=== PATIENT | female | born 1935 | race Caucasian/White ===

== ENCOUNTER → 2021-07-12 | Outpatient (CLI) | payer MEDICARE, BC ==
--- NOTE | 2021-07-12 13:29 | BD ---
EXAMINATION TYPE: Axial Bone Density DATE OF EXAM: 07/12/2021 COMPARISON: 06.11.2012 CLINICAL HISTORY: 85 YR OLD FEMALE.....ICD-10 CODE: Z78 MENOPAUSAL STATE Height: 57.5 Weight: 126 FRAX RISK QUESTIONS: NOTHING TO NOTE HERE RISK FACTORS HISTORY OF: Family History of Osteoporosis: YES, FATHER Postmenopausal woman: YES AT AGE 52 Lost more than 2 inches in height since high school: YES Frequent falls: ELDERLY Poor Health: POOR HISTORIAN, SLIGHT LANGUAGE BARRIER Hyperparathyroidism: UNKNOWN Adrenal Insufficiency: UNKNOWN MEDICATIONS: Additional Medications: BP MEDS, STATIN FOR CHOLESTEROL, VIT D, COD LIVER OIL Additional History: HYPERTENSION, CHOLESTEROL EXAM MEASUREMENTS: Bone mineral densitometry was performed using the [employer] System. Bone mineral density as measured about the Lumbar spine is: ----- L1-L4(G/cm2): 1.141 T Score Values are as follows: ----- L1: -0.4 ----- L2: 0.1 ----- L3: -0.6 ----- L4: -0.4 ----- L1-L4: -0.3 Bone mineral density has: Increased 1.3% since study of: 06.11.2012 Bone mineral density about the R hip (g/cm2): 0.683 Bone mineral density about the L hip (g/cm2): 0.735 T Score values are as follows: -----R Neck: -1.6 -----L Neck: -1.9 -----R Total: -2.6 -----L Total: -2.2 Bone mineral density has: Decreased -11.5% since study of: 06.11.2012 FRAX%s: THERE IS A 15.4% CHANCE FOR A MAJOR OSTEOPOROTIC FX AND A 4.6% FOR HER HIPS.....PROBABILI TY FOR FX IN 10 YRS TIME IMPRESSION: Osteoporosis (T Score less than -2.5). There is increased fracture risk and therapy is usually indicated based on age. Re-Screen 1-2 years. NOTE: T-SCORE=SD OF THE YOUNG ADULT MEAN.
== END | disposition home or self-care (01) ==
LOC: RADBDWWP 08:25
PROVIDERS: ATTEND Family Medicine
DX: M81.0 Age-related osteoporosis without current pathological fracture (principal); Z78.0 Asymptomatic menopausal state
CPT/HCPCS: 77080

== ENCOUNTER → 2021-09-11 | Outpatient (CLI) | payer MEDICARE, BC ==
[2021-09-11 16:17] LABS: Basophils % (A) 1.2 %; Eosinophils # (A) 0.12 X 10*3/uL (0.04-0.35); Eosinophils % (A) 1.5 %; HCT 40.7 % (37.2-46.3); HGB 13.5 g/dL (12.0-15.0); Lymphocytes # (A) 2.47 X 10*3/uL (0.90-5.00); Lymphocytes % (A) 30.6 %; MCH 28.7 pg (27.0-32.0); MCHC 33.2 g/dL (32.0-37.0); MCV 86.6 fL (80.0-97.0); Mean Platelet Volume 9.7 fL (9.5-12.2); Monocytes % (A) 9.9 %; Neutrophils # (A) 4.53 X 10*3/uL (1.80-7.70); Neutrophils % (A) 56.3 %; Platelet Count 287 X 10*3/uL (140-440); RDW 12.3 % (11.5-14.5); WBC 8.06 X 10*3/uL (4.50-10.00)
[2021-09-11 18:33] LABS: ALT 17 U/L (8-44); AST 20 U/L (13-35); African American GFR (CKD) 95.4 (60.0-200.0); Albumin 4.5 g/dL (3.8-4.9); Albumin/Globulin Ratio 1.71 (1.60-3.17); Alkaline Phosphatase 89 U/L (41-126); BUN/Creat Ratio 15.12 Ratio (12.00-20.00); Blood Urea Nitrogen 9.7 mg/dL (9.0-27.0); Calcium 9.8 mg/dL (8.7-10.3); Carbon Dioxide 22.8 mmol/L (20.0-27.5); Chloride 100 mmol/L (96-109); Chol/HDL Ratio 3.09 Ratio; Globulin 2.6 g/dL (1.6-3.3); Glucose 113 mg/dL (70-110); LDL Cholesterol,Calculated 84.1 mg/dL (0.0-131.0); Non-African American GFR(CKD) 82.4 (60.0-200.0); Potassium 4.7 mmol/L (3.5-5.5); Sodium 135 mmol/L (135-145); Total Protein 7.1 g/dL (6.2-8.2)
== END | disposition home or self-care (01) ==
LOC: LABWHC1 10:15
PROVIDERS: ATTEND Family Medicine
DX: E78.00 Pure hypercholesterolemia, unspecified (principal); E87.1 Hypo-osmolality and hyponatremia; I10 Essential (primary) hypertension; M81.0 Age-related osteoporosis without current pathological fracture
CPT/HCPCS: 36415; 80053; 80061; 82306; 85025

== ENCOUNTER 2022-08-31 20:02 | Inpatient (IN) | payer MEDICARE, BC ==
[2022-08-31 22:02] LABS: Basophils % (A) 0 %; Eosinophils # (A) 0.1 k/uL (0-0.7); Eosinophils % (A) 1 %; HGB 14.2 gm/dL (11.4-16.0); Lymphocytes # (A) 1.3 k/uL (1.0-4.8); Lymphocytes % (A) 10 %; MCH 29.4 pg (25.0-35.0); MCHC 33.9 g/dL (31.0-37.0); MCV 86.7 fL (80.0-100.0); Mean Platelet Volume 7.3; Monocytes # (A) 0.6 k/uL (0-1.0); Monocytes % (A) 5 %; Neutrophils # (A) 10.4 k/uL (1.3-7.7); Neutrophils % (A) 83 %; Platelet Count 448 k/uL (150-450); RBC 4.85 m/uL (3.80-5.40); RDW 13.2 % (11.5-15.5); WBC 12.6 k/uL (3.8-10.6)
[2022-08-31 22:11] LABS: Albumin 3.4 g/dL (3.5-5.0); Calcium 8.9 mg/dL (8.4-10.2); Total Bilirubin 0.5 mg/dL (0.2-1.3); Total Protein 6.7 g/dL (6.3-8.2)
--- NOTE | 2022-08-31 22:39 | ED ---
Weakness HPI - General Chief complaint: Weakness Stated complaint: Weakness,PCP sent Time Seen by Provider: 08/31/22 22:38 Source: patient, RN notes reviewed, old records reviewed Mode of arrival: ambulatory Limitations: no limitations - History of Present Illness Initial comments: 86-year-old female DF for evaluation. Patient primarily complaining of weakness. Weakness lightheadedness dizziness. decreased appetite weakness lightheadedness, swelling of fever MD Complaint: generalized weakness -: days(s) Location: generalized Severity: moderate Severity scale (1-10): 7 Quality: numbness, aching Consistency: constant Improves with: none Worsens with: none Context: recent illness, history of similar Associated Symptoms: confusion, nausea/vomiting, shortness of breath - Related Data Allergies Allergy/AdvReac Type Severity Reaction Status Date / Time No Known Allergies Allergy Verified 08/31/22 20:08 Review of Systems ROS Statement: Those systems with pertinent positive or pertinent negative responses have been documented in the HPI. ROS Other: All systems not noted in ROS Statement are negative. Past Medical History Past Medical History: Hyperlipidemia, Hypertension Additional Past Medical History / Comment(s): leaky valves History of Any Multi-Drug Resistant Organisms: None Reported Past Surgical History: Tubal Ligation Past Psychological History: No Psychological Hx Reported Smoking Status: Never smoker Past Alcohol Use History: None Reported Past Drug Use History: None Reported General Exam Limitations: no limitations General appearance: alert, in no apparent distress Head exam: Present: atraumatic, normocephalic, normal inspection Eye exam: Present: normal appearance, PERRL, EOMI. Absent: scleral icterus, conjunctival injection, periorbital swelling ENT exam: Present: normal exam, mucous membranes moist Neck exam: Present: normal inspection. Absent: tenderness, meningismus, lymphadenopathy Respiratory exam: Present: normal lung sounds bilaterally. Absent: respiratory distress, wheezes, rales, rhonchi, stridor Cardiovascular Exam: Present: regular rate, normal rhythm, normal heart sounds. Absent: systolic murmur, diastolic murmur, rubs, gallop, clicks GI/Abdominal exam: Present: soft, normal bowel sounds. Absent: distended, tenderness, guarding, rebound, rigid Extremities exam: Present: normal inspection, full ROM, normal capillary refill. Absent: tenderness, pedal edema, joint swelling, calf tenderness Back exam: Present: normal inspection Neurological exam: Present: alert, oriented X3, CN II-XII intact Psychiatric exam: Present: normal affect, normal mood Skin exam: Present: warm, dry, intact, normal color. Absent: rash Course Vital Signs 08/31/22 08/31/22 20:09 23:36 Temperature 96 F L 97.8 F Pulse Rate 50 L 92 Respiratory 16 16 Rate Blood Pressure 120/73 113/63 O2 Sat by Pulse 92 L 95 Oximetry - Reevaluation(s) Reevaluation #1: 08/31/22 23:43 Medical record is reviewed Reevaluation #2: 08/31/22 23:43 Patient informed of results Reevaluation #3: 08/31/22 23:43 Patient has no change in symptoms here in the ER - Consultations Consultation #1: Spoke with [facility] who agree to admit this patient Medical Decision Making - Medical Decision Making 86 female to the emergency department admitted for severe decreased appetite and dehydration elevated potassium treatment of all the above, pneumonia likely UTI and dehydration - Lab Data Result diagrams: 08/31/22 21:51 08/31/22 21:51 Lab Results 08/31/22 08/31/22 08/31/22 Range/Units 21:51 21:51 21:51 WBC 12.6 H (3.8-10.6) k/uL RBC 4.85 (3.80-5.40) m/uL Hgb 14.2 (11.4-16.0) gm/dL Hct 42.0 (34.0-46.0) % MCV 86.7 (80.0-100.0) fL MCH 29.4 (25.0-35.0) pg MCHC 33.9 (31.0-37.0) g/dL RDW 13.2 (11.5-15.5) % Plt Count 448 (150-450) k/uL MPV 7.3 Neutrophils % 83 % Lymphocytes % 10 % Monocytes % 5 % Eosinophils % 1 % Basophils % 0 % Neutrophils # 10.4 H (1.3-7.7) k/uL Lymphocytes # 1.3 (1.0-4.8) k/uL Monocytes # 0.6 (0-1.0) k/uL Eosinophils # 0.1 (0-0.7) k/uL Basophils # 0.0 (0-0.2) k/uL Sodium 135 L (137-145) mmol/L Potassium 6.0 H (3.5-5.1) mmol/L Chloride 102 (98-107) mmol/L Carbon Dioxide 22 (22-30) mmol/L Anion Gap 11 mmol/L BUN 35 H (7-17) mg/dL Creatinine 0.77 (0.52-1.04) mg/dL Est GFR (CKD-EPI)AfAm 82 (>60 ml/min/1.73 sqM) Est GFR (CKD-EPI)NonAf 71 (>60 ml/min/1.73 sqM) Glucose 158 H (74-99) mg/dL Calcium 8.9 (8.4-10.2) mg/dL Total Bilirubin 0.5 (0.2-1.3) mg/dL AST 32 (14-36) U/L ALT 18 (4-34) U/L Alkaline Phosphatase 60 (38-126) U/L Troponin I 0.046 H* (0.000-0.034) ng/mL Total Protein 6.7 (6.3-8.2) g/dL Albumin 3.4 L (3.5-5.0) g/dL Coronavirus (PCR) (Not Detectd) 08/31/22 Range/Units 22:49 WBC (3.8-10.6) k/uL RBC (3.80-5.40) m/uL Hgb (11.4-16.0) gm/dL Hct (34.0-46.0) % MCV (80.0-100.0) fL MCH (25.0-35.0) pg MCHC (31.0-37.0) g/dL RDW (11.5-15.5) % Plt Count (150-450) k/uL MPV Neutrophils % % Lymphocytes % % Monocytes % % Eosinophils % % Basophils % % Neutrophils # (1.3-7.7) k/uL Lymphocytes # (1.0-4.8) k/uL Monocytes # (0-1.0) k/uL Eosinophils # (0-0.7) k/uL Basophils # (0-0.2) k/uL Sodium (137-145) mmol/L Potassium (3.5-5.1) mmol/L Chloride (98-107) mmol/L Carbon Dioxide (22-30) mmol/L Anion Gap mmol/L BUN (7-17) mg/dL Creatinine (0.52-1.04) mg/dL Est GFR (CKD-EPI)AfAm (>60 ml/min/1.73 sqM) Est GFR (CKD-EPI)NonAf (>60 ml/min/1.73 sqM) Glucose (74-99) mg/dL Calcium (8.4-10.2) mg/dL Total Bilirubin (0.2-1.3) mg/dL AST (14-36) U/L ALT (4-34) U/L Alkaline Phosphatase (38-126) U/L Troponin I (0.000-0.034) ng/mL Total Protein (6.3-8.2) g/dL Albumin (3.5-5.0) g/dL Coronavirus (PCR) Not Detected (Not Detectd) - EKG Data -: EKG Interpreted by Me (EKG sinus tachycardia 106 AK 178 QRS 76 QTC 374) - Radiology Data Radiology results: report reviewed (Chest x-rays positive for pneumonia), image reviewed Disposition Clinical Impression: Dehydration, Hyperkalemia, Weakness, Elevated troponin Disposition: ADMITTED IP TO THIS [facility] Condition: Fair Is patient prescribed a controlled substance at d/c from ED?: No Referrals: Sheila Mckeon MD [Primary Care Provider] - 1-2 days Time of Disposition: 23:45
[2022-08-31] MEDS ORDERED: cefTRIAXone IN SWFI 1,000 MG/10 ML SYRINGE IVP STA (22:47)
[2022-08-31] MEDS ORDERED: SODIUM CHLORIDE 0.9% 1,000 ML IV STA (22:48)
[2022-08-31] MEDS ORDERED: SODIUM CHLORIDE 0.9% 500 ML 500 ML IV STA (22:48)
--- NOTE | 2022-08-31 23:04 | XR ---
EXAMINATION TYPE: XR chest 1V portable DATE OF EXAM: 08/31/2022 COMPARISON: NONE HISTORY: Weakness TECHNIQUE: Single view FINDINGS: There is a nodular consolidation in the left lower lobe with blunting left costophrenic ang le. Right lung is fairly clear. No heart failure. Heart size is normal. No evidence of pneumothorax. IMPRESSION: Moderate infiltrate in the left lower lobe likely related to bronchopneumonia. There is a lso at component of pleural thickening or fluid. No heart failure seen.
[2022-08-31] MEDS ORDERED: INSULIN REGULAR 100 UNIT/ML VIAL (IV) IV ONE (23:40)
[2022-08-31] MEDS ORDERED: DEXTROSE 50% SYRINGE 50 ML IVP STA (23:40)
[2022-08-31] MEDS ORDERED: AZITHROMYCIN 500 MG in SODIUM CHLORIDE 0.9% 250 ML IVPB STA (23:40)
[2022-08-31] MEDS ORDERED: SODIUM BICARB 8.4% 50 ML SYR (1 MEQ/ML) IV STA (23:40)
[2022-08-31] MEDS ORDERED: SODIUM POLYSTYRENE SULFONATE 15 GM/60 ML BOTTLE PO STA (23:40)
[2022-08-31] MEDS ORDERED: ONDANSETRON 4 MG/2 ML VIAL IVP PRN (23:45)
[2022-08-31] MEDS ORDERED: MORPHINE SULFATE 4 MG/ML SYRINGE IV PRN (23:45)
[2022-08-31] MEDS ORDERED: NALOXONE 0.4 MG/ML 1 ML VIAL IV PRN (23:45)
[2022-09-01] MEDS: SODIUM CHLORIDE 0.9% 1,000 ML IV SCH ×3 (00:02→18:36)
[2022-09-01 00:46] LABS: Basophils % (A) 0 %; Eosinophils % (A) 0 %; HCT 35.2 % (34.0-46.0); HGB 11.9 gm/dL (11.4-16.0); Lymphocytes # (A) 1.1 k/uL (1.0-4.8); Lymphocytes % (A) 11 %; MCH 29.9 pg (25.0-35.0); MCV 88.1 fL (80.0-100.0); Mean Platelet Volume 7.5; Monocytes # (A) 0.2 k/uL (0-1.0); Monocytes % (A) 2 %; Neutrophils # (A) 8.5 k/uL (1.3-7.7); Neutrophils % (A) 86 %; Platelet Count 378 k/uL (150-450); RBC 3.99 m/uL (3.80-5.40); RDW 13.2 % (11.5-15.5); WBC 9.8 k/uL (3.8-10.6)
[2022-09-01] MEDS ORDERED: IPRATROPIUM-ALBUTEROL 3 ML NEB INHALATION STA (00:56)
--- NOTE | 2022-09-01 02:28 | CT ---
EXAMINATION TYPE: CT angio chest DATE OF EXAM: 09/01/2022 COMPARISON: None HISTORY: weakness, elevated d dimer CT DLP: 196.6 mGycm Automated exposure control for dose reduction was used. CONTRAST: Performed with IV Contrast, patient injected with 80 mL of Isovue 370. Images obtained from the thoracic inlet to the diaphragm with the IV contrast. There is extensive soft tissue density in the mediastinum encasing the pulmonary arteries on the left side and surrounding the descending thoracic aorta. This measures up to 5 cm in thickness. There is nodular pleural thickening on the left lateral chest wall. Thoracic aorta is intact. No aneurysm. No dissection. No evidence of filling defect in the pulmonary arteries. Images through the upper abdomen show some moderate abdominal ascites fluid. Heart size is normal. No definite pericardial effusion. The thoracic spine is intact. No compression fracture. No evidence of rib fracture. There is asymmetric enlargement of the left thyroid lobe with hypodensity measuring 2.6 cm. IMPRESSION: Extensive nodular pleural thickening on the left lateral chest wall with extensive mediastinal adenop athy. 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 Abdominal ascites. No evidence of pulmonary embolism. Left thyroid mass.
[2022-09-01 04:16] LABS: Appearance,Urine Cloudy (Clear); Bacteria,Urine Rare /hpf; Bilirubin,Urine Negative (Negative); Blood,Urine Negative (Negative); Color,Urine Yellow; Glucose,Urine (UA) 2+ (Negative); Hyaline Casts,Urine 4 /lpf (0-2); Ketones,Urine 1+ (Negative); Leukocyte Esterase,Urine Large (Negative); Mucus,Urine Rare /hpf; Nitrite,Urine Negative (Negative); Protein,Urine 1+ (Negative); RBC,Urine 10 /hpf (0-5); Specific Gravity,Urine 1.032 (1.001-1.035); Squamous Epithelial Cell,Urine 5 /hpf (0-4); Urobilinogen,Urine <2.0 mg/dL (<2.0); WBC,Urine >182 /hpf (0-5)
[2022-09-01 07:33] LABS: ALT 13 U/L (4-34); AST 26 U/L (14-36); African American GFR (CKD) >90 (>60 ml/min/1.73 sqM); Albumin 2.7 g/dL (3.5-5.0); Alkaline Phosphatase 59 U/L (38-126); Anion Gap 8 mmol/L; Blood Urea Nitrogen 25 mg/dL (7-17); Calcium 7.9 mg/dL (8.4-10.2); Carbon Dioxide 25 mmol/L (22-30); Chloride 105 mmol/L (98-107); Glucose 105 mg/dL (74-99); Magnesium 1.9 mg/dL (1.6-2.3); Non-African American GFR(CKD) 81 (>60 ml/min/1.73 sqM); Phosphorus 3.1 mg/dL (2.5-4.5); Potassium 4.6 mmol/L (3.5-5.1); Sodium 138 mmol/L (137-145); Total Bilirubin 0.3 mg/dL (0.2-1.3); Total Protein 5.5 g/dL (6.3-8.2)
--- NOTE | 2022-09-01 11:23 | P.HPIM ---
History of Present Illness 86-year-old pleasant female came in the hospital with complaints of the generalized weakness and lightheadedness. daughter is at bedside patient's granddaughter happened to be physician believed that the patient may be dehydrated and they commented that patient go to ER for IV hydration. Patient is found to be hypoxic with the oxygen saturations going to low 80 he's patient is presently requiring BiPAP. Patient doesn't have any smoking history doesn't have any history of COPD not wheezing on exam doesn't have any CHF history. Patient denied any pleuritic chest pain patient has an elevated d- dimer because of which CT angios the chest was obtained which showed pleural thickening and some nonspecific infiltrate but no consolidation or a bronchogram patient had mild leukocytosis which resolved patient doesn't have any fever chills COVID-19 is negative influenza testing was not done. There is no pulmonary embolus, and the CT. Next Patient lives by herself with the daughter living next door. 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 Patient was given IV antibiotics in ER believing that she may have pneumonia patient doesn't have any significant cough or sputum production at this time. Patient also has mild elevation of her troponins highest one being 0.05. Patient denied any chest pain. Patient does have some arm PACs but no acute ST-T wave changes in the EKG patient does have sinus tachycardia and EKG. Clinically no evidence of CHF. Upon questioning patient is a admitted to patient's weight loss about 20 pounds in last 3 months. REVIEW OF SYSTEMS: CONSTITUTIONAL: No fever.HEENT: No recent visual problems or hearing problems. Denied any sore throat. CARDIOVASCULAR: No chest pain, orthopnea, PND, no palpitations, no syncope. PULMONARY: No shortness of breath, no cough, no hemoptysis. GASTROINTESTINAL: No diarrhea, no nausea, no vomiting, no abdominal pain. NEUROLOGICAL: No headaches, no weakness, no numbness. HEMATOLOGICAL: Denies any bleeding or petechiae. GENITOURINARY: Denies any burning micturition, frequency, or urgency. MUSCULOSKELETAL/RHEUMATOLOGICAL: Denies any joint pain, swelling, or any muscle pain. ENDOCRINE: Denies any polyuria or polydipsia. The rest of the 14-point review of systems is negative. PHYSICAL EXAMINATION: GENERAL: The patient is alert and oriented x3, not in any acute distress. Well developed, well nourished. HEENT: Pupils are round and equally reacting to light. EOMI. No scleral icterus. No conjunctival pallor. Normocephalic, atraumatic. No pharyngeal erythema. No thyromegaly. CARDIOVASCULAR: S1 and S2 present. No murmurs, rubs, or gallops. PULMONARY: Chest is clear to auscultation, no wheezing or crackles. ABDOMEN: Soft, nontender, nondistended, normoactive bowel sounds. No palpable o rganomegaly. MUSCULOSKELETAL: No joint swelling or deformity. EXTREMITIES: No cyanosis, clubbing, or pedal edema. NEUROLOGICAL: Gross neurological examination did not reveal any focal deficits. SKIN: No rashes. Assessment and plan -Acute hypoxic respiratory failure etiology is not clear rule out pulmonary embolism no evidence of COPD or CHF a nodular consulted no evidence of pneumonia Elva up 10 level is can you antibiotics. Patient does have significant pleural thickening on the left side may need pleural biopsy with concerns of mesothelioma -Thyroid nodule we'll obtain TSH will need outpatient thyroid ultrasound -Weight loss can be related to undiagnosed malignancy or HR secondary to dementia -Possible mild to moderate dementia vascular or senile -Mild troponin elevation no evidence of acute myocardial infarction clinically. No significant EKG changes echocardiogram will be obtained -Sinus tachycardia secondary to dehydration continue with IV fluids will cut down the fluids to 75 mL/h -Hyperkalemia: Secondary to dehydration and mild acute renal failure improved at this time with IV fluids -Leukocytosis patient urine is significantly abnormal I cannot completely rule out UTI most probably secondary bacteria considering that patient has a Leukocytosis a good and continue the Rocephin for 2 more days DVT prophylaxis: Low-dose Lovenox Past Medical History Past Medical History: Hyperlipidemia, Hypertension Additional Past Medical History / Comment(s): leaky valves History of Any Multi-Drug Resistant Organisms: None Reported Past Surgical History: Tubal Ligation Past Psychological History: No Psychological Hx Reported Smoking Status: Never smoker Past Alcohol Use History: None Reported Past Drug Use History: None Reported Medications and Allergies Home Medications Medication Instructions Recorded Confirmed Type Alendronate Sodium [Fosamax] 70 mg PO SA 09/01/22 09/01/22 History Losartan [Cozaar] 50 mg PO DAILY 09/01/22 09/01/22 History Simvastatin [Zocor] 20 mg PO HS 09/01/22 09/01/22 History Timolol 0.5% Ophth Soln [Timoptic 1 drop BOTH EYES BID 09/01/22 09/01/22 History 0.5% Ophth Soln] Vit C/E/Zn/Coppr/Lutein/Zeaxan 1 tab PO DAILY 09/01/22 09/01/22 History [Preservision Areds 2 Chew Tab] Allergies Allergy/AdvReac Type Severity Reaction Status Date / Time No Known Allergies Allergy Verified 09/01/22 07:13 Physical Exam Vitals: Vital Signs Temp Pulse Resp BP Pulse Ox FiO2 09/01/22 09:02 100 09/01/22 06:53 97.8 F 100 16 117/76 92 L 09/01/22 06:01 98 18 98/63 96 09/01/22 05:29 91 18 98/59 89 L 09/01/22 04:00 99 18 101/62 92 L 09/01/22 01:22 114 H 09/01/22 01:14 113 H 09/01/22 01:03 94 L 09/01/22 01:00 94 L 09/01/22 00:40 90 L 09/01/22 00:02 101 H 16 111/60 96 08/31/22 23:36 97.8 F 92 16 113/63 95 08/31/22 20:09 96 F L 50 L 16 120/73 92 L Intake and Output 08/31/22 09/01/22 09/01/22 22:59 06:59 14:59 Other: Weight 48.761 kg Results CBC & Chem 7: 09/01/22 00:27 09/01/22 05:44 Labs: Abnormal Lab Results - Last 24 Hours (Table) 08/31/22 08/31/22 08/31/22 Range/Units 21:51 21:51 21:51 WBC 12.6 H (3.8-10.6) k/uL Neutrophils # 10.4 H (1.3-7.7) k/uL D-Dimer (<0.60) mg/L FEU Sodium 135 L (137-145) mmol/L Potassium 6.0 H (3.5-5.1) mmol/L BUN 35 H (7-17) mg/dL Glucose 158 H (74-99) mg/dL Calcium (8.4-10.2) mg/dL Troponin I 0.046 H* (0.000-0.034) ng/mL Total Protein (6.3-8.2) g/dL Albumin 3.4 L (3.5-5.0) g/dL Urine Appearance (Clear) Urine Protein (Negative) Urine Glucose (UA) (Negative) Urine Ketones (Negative) Ur Leukocyte Esterase (Negative) Urine RBC (0-5) /hpf Urine WBC (0-5) /hpf Ur Squamous Epith Cells (0-4) /hpf Urine Bacteria (None) /hpf Hyaline Casts (0-2) /lpf Urine Mucus (None) /hpf 08/31/22 09/01/22 09/01/22 Range/Units 21:51 00:03 00:27 WBC (3.8-10.6) k/uL Neutrophils # 8.5 H (1.3-7.7) k/uL D-Dimer 6.14 H (<0.60) mg/L FEU Sodium (137-145) mmol/L Potassium (3.5-5.1) mmol/L BUN (7-17) mg/dL Glucose (74-99) mg/dL Calcium (8.4-10.2) mg/dL Troponin I 0.042 H* (0.000-0.034) ng/mL Total Protein (6.3-8.2) g/dL Albumin (3.5-5.0) g/dL Urine Appearance (Clear) Urine Protein (Negative) Urine Glucose (UA) (Negative) Urine Ketones (Negative) Ur Leukocyte Esterase (Negative) Urine RBC (0-5) /hpf Urine WBC (0-5) /hpf Ur Squamous Epith Cells (0-4) /hpf Urine Bacteria (None) /hpf Hyaline Casts (0-2) /lpf Urine Mucus (None) /hpf 09/01/22 09/01/22 09/01/22 Range/Units 03:52 05:44 05:44 WBC (3.8-10.6) k/uL Neutrophils # (1.3-7.7) k/uL D-Dimer (<0.60) mg/L FEU Sodium (137-145) mmol/L Potassium (3.5-5.1) mmol/L BUN 25 H (7-17) mg/dL Glucose 105 H (74-99) mg/dL Calcium 7.9 L (8.4-10.2) mg/dL Troponin I 0.052 H* (0.000-0.034) ng/mL Total Protein 5.5 L (6.3-8.2) g/dL Albumin 2.7 L (3.5-5.0) g/dL Urine Appearance Cloudy H (Clear) Urine Protein 1+ H (Negative) Urine Glucose (UA) 2+ H (Negative) Urine Ketones 1+ H (Negative) Ur Leukocyte Esterase Large H (Negative) Urine RBC 10 H (0-5) /hpf Urine WBC >182 H (0-5) /hpf Ur Squamous Epith Cells 5 H (0-4) /hpf Urine Bacteria Rare H (None) /hpf Hyaline Casts 4 H (0-2) /lpf Urine Mucus Rare H (None) /hpf Microbiology - Last 24 Hours (Table) 09/01/22 03:52 Urine Culture - Preliminary Urine,Voided
--- NOTE | 2022-09-01 14:06 | P.CNPUL ---
History of Present Illness Consult date: 09/01/22 Requesting physician: Sheila Mckeon Reason for consult: dyspnea, hypoxemia, abnormal CXR/CT Chief complaint: Weakness/dehydration. History of present illness: Pulmonary consult dated 09/01/2022. 86-year-old female that sees Dr. Sheila Mckeon, and has a history of hypertension, osteoporosis, hyperlipidemia, glaucoma, and macular degeneration. The patient was seen in the emergency room, on August 31, at 8:00 PM, for weakness, as well as possible dehydration, decreased appetite, lightheadedness, and dizziness. At some point in the emergency department, the patient apparently developed some low saturations, and she was placed on BiPAP. She denies being short of breath. Her BiPAP settings are 12/5 and 80%. She denies any cough, wheezing, or phlegm production. She denies being short of breath. A family member states that she has no history of any lung issues. She is a nonsmoker. I was consulted because the patient had low saturations. She is seen today in ER room 2. She appears not to be in any distress. Does not like wearing the BiPAP. Her CBC is normal. Sodium 140, potassium 4.6, chlorides 105, CO2 25, anion gap 8, BUN 25, and creatinine 0.67. Initial BUN/creatinine were 35 and 0.77, suggesting some prerenal azotemia. Glucose 105 troponins were elevated at 0.046 and 0.052. Urine is yellow and cloudy. Protein is 1+. Leukocyte esterase is large positive. There is greater than 182 WBCs, and rare bacteria. This could be consistent with a urinary tract infection. Screening for coronavirus was negative. Chest x-ray show some consolidation in the left lower lobe, pleural thickening, possible fluid, but no evidence of heart failure. Computed tomography scan of the chest showed extensive nodular pleural thickening on the left chest wall with extensive mediastinal adenopathy. The radiologist raises suspicion of mesothelioma. There is also evidence of a bdominal ascites, and there is no evidence of pulmonary embolism. Review of Systems REVIEW OF SYSTEMS: CONSTITUTIONAL: Weakness with possible dehydration NEUROLOGIC: Lightheadedness and dizziness. HEENT: [ Negative.] CARDIAC: [Negative.] PULMONARY: [Negative.] GI: Poor oral intake. : [Negative.] RHEUMATOLOGIC: [ Negative.] IMMUNOLOGIC: [ Negative.] ENDOCRINE: [Negative. ] DERMATOLOGIC: [Negative.] Past Medical History Past Medical History: Hyperlipidemia, Hypertension Additional Past Medical History / Comment(s): leaky valves History of Any Multi-Drug Resistant Organisms: None Reported Past Surgical History: Tubal Ligation Past Psychological History: No Psychological Hx Reported Smoking Status: Never smoker Past Alcohol Use History: None Reported Past Drug Use History: None Reported Medications and Allergies Home Medications Medication Instructions Recorded Confirmed Type Alendronate Sodium [Fosamax] 70 mg PO SA 09/01/22 09/01/22 History Losartan [Cozaar] 50 mg PO DAILY 09/01/22 09/01/22 History Simvastatin [Zocor] 20 mg PO HS 09/01/22 09/01/22 History Timolol 0.5% Ophth Soln [Timoptic 1 drop BOTH EYES BID 09/01/22 09/01/22 History 0.5% Ophth Soln] Vit C/E/Zn/Coppr/Lutein/Zeaxan 1 tab PO DAILY 09/01/22 09/01/22 History [Preservision Areds 2 Chew Tab] Allergies Allergy/AdvReac Type Severity Reaction Status Date / Time No Known Allergies Allergy Verified 09/01/22 07:13 Physical Exam Osteopathic Statement: *. No significant issues noted on an osteopathic structural exam other than those noted in the History and Physical/Consult. Vitals: Vital Signs Temp Pulse Resp BP Pulse Ox FiO2 09/01/22 11:58 97.9 F 93 20 112/80 98 09/01/22 11:37 80 09/01/22 09:02 100 09/01/22 06:53 97.8 F 100 16 117/76 92 L 09/01/22 06:01 98 18 98/63 96 09/01/22 05:29 91 18 98/59 89 L 09/01/22 04:00 99 18 101/62 92 L 09/01/22 01:22 114 H 09/01/22 01:14 113 H 09/01/22 01:03 94 L 09/01/22 01:00 94 L 09/01/22 00:40 90 L 09/01/22 00:02 101 H 16 111/60 96 08/31/22 23:36 97.8 F 92 16 113/63 95 08/31/22 20:09 96 F L 50 L 16 120/73 92 L Intake and Output 08/31/22 09/01/22 09/01/22 22:59 06:59 14:59 Other: Weight 48.761 kg No acute distress, oriented 3. Patient is wearing a BiPAP mask. HEENT examination is grossly unremarkable. Neck supple. Full range of motion. No adenopathy thyromegaly or neck vein distention. Cardiovascular examination reveals regular rhythm rate. S1-S2 normal. No S3 or S4. No discernible murmur noted. Heart sounds are distant. Heart rate 93 bpm. Lungs reveal clear bilateral breath sounds although the breath sounds in the left chest are diminished. No wheezes. No rhonchi. No crackles. Saturations on BiPAP are 98%. Abdomen soft bowel sounds are heard. No masses or tenderness. Extremities are intact. No cyanosis clubbing or edema. Skin is without rash or lesion. Neurologic examination is brief but nonfocal. Results - Laboratory Findings CBC and BMP: 09/01/22 00:27 09/01/22 05:44 PT/INR, D-dimer D-Dimer 6.14 mg/L FEU (<0.60) H 08/31/22 21:51 Abnormal lab findings: Abnormal Labs 08/31/22 08/31/22 08/31/22 21:51 21:51 21:51 WBC 12.6 H Neutrophils # 10.4 H D-Dimer Sodium 135 L Potassium 6.0 H BUN 35 H Glucose 158 H Calcium Troponin I 0.046 H* Total Protein Albumin 3.4 L Urine Appearance Urine Protein Urine Glucose (UA) Urine Ketones Ur Leukocyte Esterase Urine RBC Urine WBC Ur Squamous Epith Cells Urine Bacteria Hyaline Casts Urine Mucus 08/31/22 09/01/22 09/01/22 21:51 00:03 00:27 WBC Neutrophils # 8.5 H D-Dimer 6.14 H Sodium Potassium BUN Glucose Calcium Troponin I 0.042 H* Total Protein Albumin Urine Appearance Urine Protein Urine Glucose (UA) Urine Ketones Ur Leukocyte Esterase Urine RBC Urine WBC Ur Squamous Epith Cells Urine Bacteria Hyaline Casts Urine Mucus 09/01/22 09/01/22 09/01/22 03:52 05:44 05:44 WBC Neutrophils # D-Dimer Sodium Potassium BUN 25 H Glucose 105 H Calcium 7.9 L Troponin I 0.052 H* Total Protein 5.5 L Albumin 2.7 L Urine Appearance Cloudy H Urine Protein 1+ H Urine Glucose (UA) 2+ H Urine Ketones 1+ H Ur Leukocyte Esterase Large H Urine RBC 10 H Urine WBC >182 H Ur Squamous Epith Cells 5 H Urine Bacteria Rare H Hyaline Casts 4 H Urine Mucus Rare H - Diagnostic Findings Chest x-ray: image reviewed CT scan - chest: image reviewed Assessment and Plan Assessment: Weakness, poor oral intake, dehydration, lightheadedness, and dizziness, of unclear etiology. Extensive nodular pleural thickening in the left chest, with extensive mediastin al adenopathy, which could relate to mesothelioma. Possible urinary tract infection. History of hypertension. History of hyperlipidemia. Lifelong nontobacco user. History of osteoporosis. History of glaucoma and macular degeneration. Plan: Plan dated 09/01/2022. The patient was placed on ceftriaxone, likely for urinary tract infection. The patient was also placed on BiPAP because of low saturations. The patient will need additional investigation including an outpatient PET scan. Eventually, she may need a pleural biopsy. Additional recommendations and suggestions are forthcoming. Prognosis is guarded. Family member provided most of the history. The patient absolutely denies being short of breath. Time with Patient: Greater than 30
--- NOTE | 2022-09-01 18:23 | CA ---
Transthoracic Echo Report Name: Gretchen Mitchell Age: 86 Gender: F : 1935 Exam Date: 09/01/2022 13:00 Exam Location: [facility] Ht (in): 59 Wt (lb): 107 Ordering Physician: Janice Peña MD Attending/Referring Phys: Health Care Administrator Cathi Hernandez RDCS Procedure CPT: Indications: elevated troponins Cardiac Hx: Technical Quality: Fair Contrast 1: Total Dose (mL): Contrast 2: Total Dose (mL): MEASUREMENTS (Male / Female) Normal Values 2D ECHO LV Diastolic Diameter PLAX 2.9 cm 4.2 - 5.9 / 3.9 - 5.3 cm LV Systolic Diameter PLAX 2.3 cm IVS Diastolic Thickness 1.0 cm 0.6 - 1.0 / 0.6 - 0.9 cm LVPW Diastolic Thickness 0.8 cm 0.6 - 1.0 / 0.6 - 0.9 cm LV Relative Wall Thickness 0.6 RV Internal Dim ED PLAX 3.0 cm LA Systolic Diameter LX 3.0 cm 3.0 - 4.0 / 2.7 - 3.8 cm LA Volume 31.2 cm??? 18 - 58 / 22 - 52 cm??? M-MODE Aortic Root Diameter MM 3.5 cm MV E Point Septal Separation 1.3 cm AV Cusp Separation MM 2.0 cm DOPPLER AV Peak Velocity 108.9 cm/s AV Peak Gradient 4.7 mmHg MV Area PHT 3.1 cm??? Mitral E Point Velocity 68.6 cm/s Mitral A Point Velocity 129.5 cm/s Mitral E to A Ratio 0.5 MV Deceleration Time 247.6 ms MV E' Velocity 6.0 cm/s Mitral E to MV E' Ratio 11.5 TR Peak Velocity 238.1 cm/s TR Peak Gradient 22.7 mmHg Right Ventricular Systolic Press 27.1 mmHg FINDINGS Left Ventricle Left ventricular ejection fraction is estimated at 55-60 %. Left ventricular wall thickness normal. Right Ventricle Normal right ventricular size and function. Right ventricular systolic pressure within normal limits. Right Atrium Normal right atrial size. Left Atrium Normal left atrial size. No evidence for an atrial septal defect. Mitral Valve Mitral valve thickened. No mitral stenosis or prolapse. Trace to mild mitral regurgitation Aortic Valve Trileaflet aortic valve. No aortic valve stenosis or regurgitation. Tricuspid Valve Structurally normal tricuspid valve. Mild tricuspid regurgitation. Pulmonic Valve Trace pulmonic regurgitation. Pericardium Normal pericardium. No pericardial effusion. Aorta Normal size aortic root and proximal ascending aorta. CONCLUSIONS 1. Normal left ventricle size and systolic function 2. Trace to mild mitral and mild tricuspid regurgitation. Previewed by: Dr. Antonia Ortega MD (Electronically Signed) Final Date: 01 September 2022 18:22
[2022-09-01] MEDS: ATORVASTATIN 10 MG TAB PO SCH (20:45)
[2022-09-01] MEDS ORDERED: AZITHROMYCIN 500 MG in SODIUM CHLORIDE 0.9% 250 ML IVPB SCH (22:00)
[2022-09-01] MEDS: TIMOLOL 0.5% OPHTH DROPS 5 ML BTL BOTH EYES SCH (23:14)
[2022-09-02] MEDS ORDERED: ENOXAPARIN 30 MG/0.3 ML SYRINGE SQ SCH (09:00)
[2022-09-02 09:28] LABS: African American GFR (CKD) >90 (>60 ml/min/1.73 sqM); Anion Gap 6 mmol/L; Blood Urea Nitrogen 18 mg/dL (7-17); Calcium 7.6 mg/dL (8.4-10.2); Carbon Dioxide 25 mmol/L (22-30); Chloride 109 mmol/L (98-107); Glucose 70 mg/dL (74-99); Non-African American GFR(CKD) 89 (>60 ml/min/1.73 sqM); Sodium 140 mmol/L (137-145)
[2022-09-02] MEDS: TIMOLOL 0.5% OPHTH DROPS 5 ML BTL BOTH EYES SCH ×2 (09:30→21:08)
[2022-09-02] MEDS: VIT A,C & E-LUTEIN-MINERALS 1 EACH TAB PO SCH (09:31)
[2022-09-02] MEDS: SODIUM CHLORIDE 0.9% 1,000 ML IV SCH (09:31)
--- NOTE | 2022-09-02 12:07 | P.PN ---
Subjective Progress Note Date: 09/02/22 Principal diagnosis: Weakness. Pulmonary consult dated 09/01/2022. 86-year-old female that sees Dr. Sheila Mckeon, and has a history of hypertension, osteoporosis, hyperlipidemia, glaucoma, and macular degeneration. The patient was seen in the emergency room, on August 31, at 8:00 PM, for weakness, as well as possible dehydration, decreased appetite, lightheadedness, and diz ziness. At some point in the emergency department, the patient apparently developed some low saturations, and she was placed on BiPAP. She denies being short of breath. Her BiPAP settings are 12/5 and 80%. She denies any cough, wheezing, or phlegm production. She denies being short of breath. A family member states that she has no history of any lung issues. She is a nonsmoker. I was consulted because the patient had low saturations. She is seen today in ER room 2. She appears not to be in any distress. Does not like wearing the BiPAP. Her CBC is normal. Sodium 140, potassium 4.6, chlorides 105, CO2 25, anion gap 8, BUN 25, and creatinine 0.67. Initial BUN/creatinine were 35 and 0.77, suggesting some prerenal azotemia. Glucose 105 troponins were elevated at 0.046 and 0.052. Urine is yellow and cloudy. Protein is 1+. Leukocyte esterase is large positive. There is greater than 182 WBCs, and rare bacteria. This could be consistent with a urinary tract infection. Screening for coronavirus was negative. Chest x-ray show some consolidation in the left lower lobe, pleural thickening, possible fluid, but no evidence of heart failure. Computed tomography scan of the chest showed extensive nodular pleural thickening on the left chest wall with extensive mediastinal adenopathy. The radiologist raises suspicion of mesothelioma. There is also evidence of abdominal ascites, and there is no evidence of pulmonary embolism. Progress note dated 09/02/2022. The patient is seen today in room 353. He was seen yesterday in the emergency department. She has a history of hypertension, hyperlipidemia, glaucoma, and macular degeneration. She came into the emergency department with weakness and dehydration. Her saturations were low, and she was placed on oxygen therapy, and also BiPAP. Today, she is on 6 L high flow O2. She's getting saline at 75 mL an hour. Her CAT scan was significant in that it showed significant irregularities and thickening of the sclera on the left side. The etiology of that is not clear. The patient will need a PFT, and an outpatient PET scan. Surprisingly, the patient denies being short of breath. Sodium 140, potassium 4, chlorides 109, CO2 25, BUN 18, with a creatinine 0.51. Pro-calcitonin level was 0.32. Troponin was 0.052. Urine was suggestive of a urinary tract infection. Objective - Vital Signs Vital signs: Vital Signs Temp 97.6 F 09/02/22 07:50 Pulse 89 09/02/22 07:50 Resp 12 09/02/22 07:50 BP 101/63 09/02/22 07:50 Pulse Ox 97 09/02/22 07:50 FiO2 40 09/02/22 05:21 Intake & Output 09/01/22 09/02/22 09/02/22 18:59 06:59 18:59 Intake Total 1250 118 Output Total 200 Balance 1250 -82 Weight 48.761 kg Intake: Intake, IV Titration 950 Amount Sodium Chloride 0.9% 1, 900 000 ml @ 75 mls/hr IV . [id number] MANJU Rx#:[id number] cefTRIAXone 1 gm In 50 Sodium Chloride 0.9% 50 ml @ 100 mls/hr IVPB Q12H MANJU Rx#:[id number] Oral 300 118 Output: Urine 200 Other: Voiding Method Bedside Commode Bedside Commode # Voids 1 - Exam No acute distress, oriented 3. Patient is on high flow O2 at 6 L. HEENT examination is grossly unremarkable. Neck supple. Full range of motion. No adenopathy thyromegaly or neck vein distention. Cardiovascular examination reveals regular rhythm rate. S1-S2 normal. No S3 or S4. No discernible murmur noted. Heart sounds are distant. Heart rate 89 bpm. Lungs reveal clear bilateral breath sounds although the breath sounds in the left chest are diminished. No wheezes. No rhonchi. No crackles. Saturations 96% on 6 L high flow O2. Abdomen soft bowel sounds are heard. No masses or tenderness. Extremities are intact. No cyanosis clubbing or edema. Skin is without rash or lesion. Neurologic examination is brief but nonfocal. - Labs CBC & Chem 7: 09/01/22 00:27 09/02/22 08:42 Labs: Abnormal Lab Results - Last 24 Hours (Table) 09/01/22 09/02/22 Range/Units 13:18 08:42 Chloride 109 H (98-107) mmol/L BUN 18 H (7-17) mg/dL Creatinine 0.51 L (0.52-1.04) mg/dL Glucose 70 L (74-99) mg/dL Calcium 7.6 L (8.4-10.2) mg/dL Procalcitonin 0.32 H (0.02-0.09) ng/mL Microbiology - Last 24 Hours (Table) 09/01/22 03:52 Urine Culture - Final Urine,Voided 08/31/22 23:10 Blood Culture - Preliminary Blood No Growth after 24 hours 08/31/22 23:00 Blood Culture - Preliminary Blood No Growth after 24 hours Assessment and Plan Assessment: Weakness, poor oral intake, dehydration, lightheadedness, and dizziness, of unclear etiology, could relate to possible urinary tract infection. Extensive nodular pleural thickening in the left chest, with extensive mediastinal adenopathy, which could relate to mesothelioma. Possible urinary tract infection. History of hypertension. History of hyperlipidemia. Lifelong nontobacco user. History of osteoporosis. History of glaucoma and macular degeneration. Plan: Plan dated 09/01/2022. The patient was placed on ceftriaxone, likely for urinary tract infection. The patient was also placed on BiPAP because of low saturations. The patient will need additional investigation including an outpatient PET scan. Eventually, she may need a pleural biopsy. Additional recommendations and suggestions are forthcoming. Prognosis is guarded. Family member provided most of the history. The patient absolutely denies being short of breath. Plan dated 09/02/2022. Today I spent time explaining to the patient's daughter, the findings on the CAT scan. I showed her the CAT scan myself. The patient will need an outpatient PET scan, and complete pulmonary function test. The patient's on 6 L of oxygen. She denies being short of breath. She is a lifelong nonsmoker. There is no previous history of this best this exposure. 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 Labs, x-rays, and medications are reviewed. The patient will follow-up with me in the office. Time with Patient: Less than 30
--- NOTE | 2022-09-02 14:13 | FL ---
Exam Date: 09/02/2022 1:02 PM. Modified barium swallow for dysphagia. Consistencies administered: Various consistency of barium. Fluoro time: 2 minutes 2 seconds No images were sent to PACS. Please see speech pathology report.
[2022-09-02 17:02] VITALS: BMI 23.2
[2022-09-03] MEDS: ATORVASTATIN 10 MG TAB PO SCH ×2 (00:02→21:36)
--- NOTE | 2022-09-03 06:33 | P.PN ---
Subjective Progress Note Date: 09/02/22 86-year-old pleasant female came in the hospital with complaints of the generalized weakness and lightheadedness. daughter is at bedside patient's granddaughter happened to be physician believed that the patient may be dehydrated and they commented that patient go to ER for IV hydration. Patient is found to be hypoxic with the oxygen saturations going to low 80 he's patient is presently requiring BiPAP. Patient doesn't have any smoking history doesn't have any history of COPD not wheezing on exam doesn't have any CHF history. Patient denied any pleuritic chest pain patient has an elevated d- dimer because of which CT angios the chest was obtained which showed pleural thickening and some nonspecific infiltrate but no consolidation or a bronchogram patient had mild leukocytosis which resolved patient doesn't have any fever chills COVID-19 is negative influenza testing was not done. There is no pulmonary embolus, and the CT. Next Patient lives by herself with the daughter living next door. 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 Patient was given IV antibiotics in ER believing that she may have pneumonia patient doesn't have any significant cough or sputum production at this time. Patient also has mild elevation of her troponins highest one being 0.05. Patient denied any chest pain. Patient does have some arm PACs but no acute ST-T wave changes in the EKG patient does have sinus tachycardia and EKG. Clinically no evidence of CHF. Upon questioning patient is a admitted to patient's weight loss about 20 pounds in last 3 months. 09/02/2022 Patient is seen in follow-up today scheduled to undergo MBS study today as family feels she has been choking on foods and liquids for some time. Patient is currently on 6L HF with intermittent bipap use. Patient does not report feelings of shortness of breath but oxygen saturations drop significantly when off of 02. Pulmonary following and had lengthy discussion of the CT results and will need further testing outpatient including PET scan and will follow her in the office. Continue to wean as tolerated. Encouraged oral intake once study has been conduction per speech recommendations and increased activity as tolerated. Patient has been losing weight over the last few months. Afebrile and denies chest pain or palpitations. No reports of nausea or vomiting. Continued on ceftriaxone and awaiting urine cultures. Review of systems: Constitutional: No reports of fatigue, fever, or chills Cardiovascular: No reports of chest pain or palpitations Respiratory: No reports of shortness of breath or cough GI: No reports of nausea, vomiting, or diarrhea : No reports of dysuria or retention Neurovascular: reports of generalized weakness All medications have been reviewed PHYSICAL EXAMINATION: GENERAL: The patient is alert and oriented x3, not in any acute distress. Well developed, well nourished. HEENT: Pupils are round and equally reacting to light. EOMI. No scleral icterus. No conjunctival pallor. Normocephalic, atraumatic. No pharyngeal erythema. No thyromegaly. CARDIOVASCULAR: S1 and S2 present. No murmurs, rubs, or gallops. PULMONARY: diminished breath sounds bilaterally, Chest is clear to auscultation, no wheezing or crackles. ABDOMEN: Soft, nontender, nondistended, normoactive bowel sounds. No palpable organomegaly. MUSCULOSKELETAL: No joint swelling or deformity. EXTREMITIES: No cyanosis, clubbing, or pedal edema. NEUROLOGICAL: Gross neurological examination did not reveal any focal deficits. diffuse weakness SKIN: No rashes. Assessment: -Acute hypoxic respiratory failure etiology is not clear ruled out pulmonary embolism no evidence of COPD or CHF, no evidence of pneumonia. 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 No significant EKG changes, 2d echo pending -Sinus tachycardia secondary to dehydration continue with IV fluids will cut down the fluids to 75 mL/h -Hyperkalemia: Secondary to dehydration and mild acute renal failure, improved -Leukocytosis patient urine is significantly abnormal I cannot completely rule out UTI most probably secondary bacteria considering that patient has a Leukocytosis, continue the Rocephin for 2 more days -DVT prophylaxis: Low-dose Lovenox -full code, with no intubation Plan: Recommend to continue with current medications and management with pulmonary following Speech consulted and to undergo modified barium swallow today Continued on 6L HF currently with intermittent bipap use family at the bedside asking about appetite stimulant and will await swallow results Pulmonary Dr. Gonzalez following and had a detailed conversation with family at the bedside and will need outpatient testing and PET scan and will see him outpatient on discharge Wean FI02 as tolerated Urine culture came back negative and will continue rocephin one more day to complete the course TSH was normal. Patient will need outpatient thyroid ultrasound for nodules noted on cT Prognosis is guarded The impression and plan of care has been dictated by Jade Paul, Nurse Practitioner as directed. Dr. Casey MD I have performed a history and examination and MDM of this patient, discussed the same with the dictator, and agree with the dictator's assessment and plan as written ,documented as a scribe. Based on total visit time, I have performed more than 50% of the visit. Objective - Vital Signs Vital signs: Vital Signs Temp 97.7 F 09/02/22 03:34 Pulse 95 09/02/22 03:34 Resp 24 09/02/22 03:34 BP 102/65 09/02/22 03:34 Pulse Ox 99 09/02/22 03:34 FiO2 40 09/02/22 05:21 Intake & Output 09/01/22 09/02/22 09/02/22 18:59 06:59 18:59 Intake Total 1250 118 Balance 1250 118 Weight 48.761 kg Intake: Intake, IV Titration 950 Amount Sodium Chloride 0.9% 1, 900 000 ml @ 75 mls/hr IV . [id number] MANJU Rx#:[id number] cefTRIAXone 1 gm In 50 Sodium Chloride 0.9% 50 ml @ 100 mls/hr IVPB Q12H MANJU Rx#:[id number] Oral 300 118 Other: Voiding Method Bedside Commode - Labs CBC & Chem 7: 09/01/22 00:27 09/02/22 08:42 Labs: Abnormal Lab Results - Last 24 Hours (Table) 09/01/22 09/02/22 Range/Units 13:18 08:42 Chloride 109 H (98-107) mmol/L BUN 18 H (7-17) mg/dL Creatinine 0.51 L (0.52-1.04) mg/dL Glucose 70 L (74-99) mg/dL Calcium 7.6 L (8.4-10.2) mg/dL Procalcitonin 0.32 H (0.02-0.09) ng/mL Microbiology - Last 24 Hours (Table) 09/01/22 03:52 Urine Culture - Final Urine,Voided 08/31/22 23:10 Blood Culture - Preliminary Blood No Growth after 24 hours 08/31/22 23:00 Blood Culture - Preliminary Blood No Growth after 24 hours
[2022-09-03] MEDS: ENOXAPARIN 40 MG/0.4 ML SYRINGE SQ SCH (09:32)
[2022-09-03] MEDS: VIT A,C & E-LUTEIN-MINERALS 1 EACH TAB PO SCH (09:32)
[2022-09-03] MEDS: TIMOLOL 0.5% OPHTH DROPS 5 ML BTL BOTH EYES SCH ×2 (09:32→21:35)
[2022-09-03 10:07] LABS: Basophils % (A) 0 %; Eosinophils # (A) 0.1 k/uL (0-0.7); Eosinophils % (A) 1 %; HCT 38.2 % (34.0-46.0); HGB 12.6 gm/dL (11.4-16.0); Lymphocytes # (A) 1.1 k/uL (1.0-4.8); Lymphocytes % (A) 13 %; MCH 29.6 pg (25.0-35.0); MCV 89.5 fL (80.0-100.0); Mean Platelet Volume 7.6; Monocytes # (A) 0.5 k/uL (0-1.0); Monocytes % (A) 6 %; Neutrophils # (A) 6.8 k/uL (1.3-7.7); Neutrophils % (A) 79 %; Platelet Count 414 k/uL (150-450); RBC 4.26 m/uL (3.80-5.40); RDW 13.4 % (11.5-15.5); WBC 8.6 k/uL (3.8-10.6)
[2022-09-03 10:19] LABS: African American GFR (CKD) >90 (>60 ml/min/1.73 sqM); Anion Gap 9 mmol/L; Blood Urea Nitrogen 16 mg/dL (7-17); Calcium 7.9 mg/dL (8.4-10.2); Carbon Dioxide 22 mmol/L (22-30); Chloride 108 mmol/L (98-107); Glucose 79 mg/dL (74-99); Non-African American GFR(CKD) 86 (>60 ml/min/1.73 sqM); Potassium 3.7 mmol/L (3.5-5.1); Sodium 139 mmol/L (137-145)
--- NOTE | 2022-09-03 13:08 | P.PN ---
Subjective Progress Note Date: 09/03/22 Principal diagnosis: Weakness. Pulmonary consult dated 09/01/2022. 86-year-old female that sees Dr. Sheila Mckeon, and has a history of hypertension, osteoporosis, hyperlipidemia, glaucoma, and macular degeneration. The patient was seen in the emergency room, on August 31, at 8:00 PM, for weakness, as well as possible dehydration, decreased appetite, lightheadedness, and diz ziness. At some point in the emergency department, the patient apparently developed some low saturations, and she was placed on BiPAP. She denies being short of breath. Her BiPAP settings are 12/5 and 80%. She denies any cough, wheezing, or phlegm production. She denies being short of breath. A family member states that she has no history of any lung issues. She is a nonsmoker. I was consulted because the patient had low saturations. She is seen today in ER room 2. She appears not to be in any distress. Does not like wearing the BiPAP. Her CBC is normal. Sodium 140, potassium 4.6, chlorides 105, CO2 25, anion gap 8, BUN 25, and creatinine 0.67. Initial BUN/creatinine were 35 and 0.77, suggesting some prerenal azotemia. Glucose 105 troponins were elevated at 0.046 and 0.052. Urine is yellow and cloudy. Protein is 1+. Leukocyte esterase is large positive. There is greater than 182 WBCs, and rare bacteria. This could be consistent with a urinary tract infection. Screening for coronavirus was negative. Chest x-ray show some consolidation in the left lower lobe, pleural thickening, possible fluid, but no evidence of heart failure. Computed tomography scan of the chest showed extensive nodular pleural thickening on the left chest wall with extensive mediastinal adenopathy. The radiologist raises suspicion of mesothelioma. There is also evidence of abdominal ascites, and there is no evidence of pulmonary embolism. Progress note dated 09/02/2022. The patient is seen today in room 353. He was seen yesterday in the emergency department. She has a history of hypertension, hyperlipidemia, glaucoma, and macular degeneration. She came into the emergency department with weakness and dehydration. Her saturations were low, and she was placed on oxygen therapy, and also BiPAP. Today, she is on 6 L high flow O2. She's getting saline at 75 mL an hour. Her CAT scan was significant in that it showed significant irregularities and thickening of the sclera on the left side. The etiology of that is not clear. The patient will need a PFT, and an outpatient PET scan. Surprisingly, the patient denies being short of breath. Sodium 140, potassium 4, chlorides 109, CO2 25, BUN 18, with a creatinine 0.51. Pro-calcitonin level was 0.32. Troponin was 0.052. Urine was suggestive of a urinary tract infection. Progress note dated 09/03/2022. The patient is again seen in room 353. The patient is currently on BiPAP, with settings of 12/5 in 100%. No IV fluids. The patient did have a CT angiogram, that was negative for pulmonary embolism. The patient has no prior history of any lung disease. She does have a history of hypertension, hyperlipidemia, coma, and macular degeneration. She was admitted with a diagnosis of weakness and dehydration. Her CAT scan did show a thick pleural rind, which will eventually need investigation. CBC is normal. Electrolyte profile is mostly normal. Chloride is mildly elevated at 108. Pro-calcitonin level is elevated your 0.32. Urine is suspicious for a urinary tract infection. The patient is on ceftriaxone. Objective - Vital Signs Vital signs: Vital Signs Temp 97.6 F 09/03/22 08:00 Pulse 101 H 09/03/22 08:00 Resp 20 09/03/22 08:00 BP 108/70 09/03/22 08:00 Pulse Ox 92 L 09/03/22 08:00 FiO2 100 09/03/22 04:01 Intake & Output 09/02/22 09/03/22 09/03/22 18:59 06:59 18:59 Intake Total 786 50 Output Total 200 Balance 586 50 Weight 48.761 kg Intake: Intake, IV Titration 550 50 Amount Sodium Chloride 0.9% 1, 500 000 ml @ 75 mls/hr IV . [id number] [facility] Rx#:[id number] cefTRIAXone 1 gm In 50 50 Sodium Chloride 0.9% 50 ml @ 100 mls/hr IVPB Q12H [facility] Rx#:[id number] Oral 236 Output: Urine 200 Other: Voiding Method Bedside Commode Bedpan # Voids 1 2 # Bowel Movements 0 - Exam No acute distress, oriented 3. Patient is on BiPAP. HEENT examination is grossly unremarkable. Neck supple. Full range of motion. No adenopathy thyromegaly or neck vein distention. Cardiovascular examination reveals regular rhythm rate. S1-S2 normal. No S3 or S4. No discernible murmur noted. Heart sounds are distant. Heart rate 101 bpm. Lungs reveal clear bilateral breath sounds although the breath sounds in the left chest are diminished. No wheezes. No rhonchi. No crackles. Saturations are 95%. Abdomen soft bowel sounds are heard. No masses or tenderness. Extremities are intact. No cyanosis clubbing or edema. Skin is without rash or lesion. Neurologic examination is brief but nonfocal. - Labs CBC & Chem 7: 09/03/22 07:39 09/03/22 07:39 Labs: Abnormal Lab Results - Last 24 Hours (Table) 09/03/22 Range/Units 07:39 Chloride 108 H (98-107) mmol/L Calcium 7.9 L (8.4-10.2) mg/dL Microbiology - Last 24 Hours (Table) 08/31/22 23:10 Blood Culture - Preliminary Blood No Growth after 48 hours 08/31/22 23:00 Blood Culture - Preliminary Blood No Growth after 48 hours 09/01/22 03:52 Urine Culture - Final Urine,Voided Assessment and Plan Assessment: Weakness, poor oral intake, dehydration, lightheadedness, and dizziness, of unclear etiology, could relate to possible urinary tract infection. Extensive nodular pleural thickening in the left chest, with extensive mediastinal adenopathy, which could relate to mesothelioma. Possible urinary tract infection. History of hypertension. History of hyperlipidemia. Lifelong nontobacco user. History of osteoporosis. History of glaucoma and macular degeneration. Plan: Plan dated 09/01/2022. The patient was placed on ceftriaxone, likely for urinary tract infection. The patient was also placed on BiPAP because of low saturations. The patient will need additional investigation including an outpatient PET scan. Eventually, she may need a pleural biopsy. Additional recommendations and suggestions are forthcoming. Prognosis is guarded. Family member provided most of the history. The patient absolutely denies being short of breath. Plan dated 09/02/2022. Today I spent time explaining to the patient's daughter, the findings on the CAT scan. I showed her the CAT scan myself. The patient will need an outpatient PET scan, and complete pulmonary function test. The patient's on 6 L of oxygen. She denies being short of breath. She is a lifelong nonsmoker. There is no previous history of this best this exposure. 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 Labs, x-rays, and medications are reviewed. The patient w ill follow-up with me in the office. Plan dated 09/03/2022. The patient will need an outpatient PET scan, and pulmonary function test. I explained this to the daughter. The patient's CT angiogram was negative for pulmonary embolism. The patient is not complaining about being short of breath which is interesting, given her high oxygen requirements. We will continue to follow make recommendations along the way. Labs, x-rays, and medications are reviewed. Prognosis is guarded. Time with Patient: Less than 30
--- NOTE | 2022-09-03 15:26 | P.PN ---
Subjective Progress Note Date: 09/03/22 86-year-old pleasant female came in the hospital with complaints of the generalized weakness and lightheadedness. daughter is at bedside patient's granddaughter happened to be physician believed that the patient may be dehydrated and they commented that patient go to ER for IV hydration. Patient is found to be hypoxic with the oxygen saturations going to low 80 he's patient is presently requiring BiPAP. Patient doesn't have any smoking history doesn't have any history of COPD not wheezing on exam doesn't have any CHF history. Patient denied any pleuritic chest pain patient has an elevated d- dimer because of which CT angios the chest was obtained which showed pleural thickening and some nonspecific infiltrate but no consolidation or a bronchogram patient had mild leukocytosis which resolved patient doesn't have any fever chills COVID-19 is negative influenza testing was not done. There is no pulmonary embolus, and the CT. Next Patient lives by herself with the daughter living next door. 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 Patient was given IV antibiotics in ER believing that she may have pneumonia patient doesn't have any significant cough or sputum production at this time. Patient also has mild elevation of her troponins highest one being 0.05. Patient denied any chest pain. Patient does have some arm PACs but no acute ST-T wave changes in the EKG patient does have sinus tachycardia and EKG. Clinically no evidence of CHF. Upon questioning patient is a admitted to patient's weight loss about 20 pounds in last 3 months. 09/02/2022 Patient is seen in follow-up today scheduled to undergo MBS study today as family feels she has been choking on foods and liquids for some time. Patient is currently on 6L HF with intermittent bipap use. Patient does not report feelings of shortness of breath but oxygen saturations drop significantly when off of 02. Pulmonary following and had lengthy discussion of the CT results and will need further testing outpatient including PET scan and will follow her in the office. Continue to wean as tolerated. Encouraged oral intake once study has been conduction per speech recommendations and increased activity as tolerated. Patient has been losing weight over the last few months. Afebrile and denies chest pain or palpitations. No reports of nausea or vomiting. Continued on ceftriaxone and awaiting urine cultures. 09/03/2022 Patient is seen this am and was on bipap and now 15L HF although oxygen demands are worsening and being placed back on bipap 100%. Pulmonary following and discussion was had of needing further testing with biopsy, PET scans and family is requesting an oncology as well as palliative care consult which will be placed. Patient is not reporting shortness of breath but 02 saturations have been in the 80's. Not eating very much. Needs encouragement. Continued on Ceftriaxone. Febrile. Overall prognosis is guarded. Review of systems: Constitutional: No reports of fatigue, fever, or chills Cardiovascular: No reports of chest pain or palpitations Respiratory: No reports of shortness of breath or cough GI: No reports of nausea, vomiting, or diarrhea : No reports of dysuria or retention Neurovascular: reports of generalized weakness All medications have been reviewed PHYSICAL EXAMINATION: GENERAL: The patient is alert and oriented x3, not in any acute distress. Well developed, well nourished. HEENT: Pupils are round and equally reacting to light. EOMI. No scleral icterus. No conjunctival pallor. Normocephalic, atraumatic. No pharyngeal erythema. No thyromegaly. CARDIOVASCULAR: S1 and S2 present. No murmurs, rubs, or gallops. PULMONARY: diminished breath sounds bilaterally, Chest is clear to auscultation, no wheezing or crackles. ABDOMEN: Soft, nontender, nondistended, normoactive bowel sounds. No palpable organomegaly. MUSCULOSKELETAL: No joint swelling or deformity. EXTREMITIES: No cyanosis, clubbing, or pedal edema. NEUROLOGICAL: Gross neurological examination did not reveal any focal deficits. diffuse weakness SKIN: No rashes. Assessment: -Acute hypoxic respiratory failure etiology is not clear ruled out pulmonary embolism no evidence of COPD or CHF, no evidence of pneumonia. 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 No significant EKG changes, 2d echo pending -Sinus tachycardia secondary to dehydration continue with gentle IV fluids -Hyperkalemia: Secondary to dehydration and mild acute renal failure, improved -Leukocytosis patient urine is significantly abnormal I cannot completely rule out UTI most probably secondary bacteria considering that patient has a Leukocytosis, continue the Rocephin for 2 more days -DVT prophylaxis: Low-dose Lovenox -full code, with no intubation Plan: Recommend to continue with current medications and management with pulmonary following Speech did a modified barium swallow to show no aspiration although does better with puree and prefers this consistency. Maintain aspiration precautions Continued on bipap 100% FI02 currently and was on 15L HF earlier this am. Pulmonary Dr. Gonzalez following and had a detailed conversation with family at the bedside and will need outpatient testing and PET scan and will see him outpatient on discharge Wean FI02 as tolerated, respiratory status guarded Urine culture came back negative and will continue rocephin one more day to complete the course TSH was normal. Patient will need outpatient thyroid ultrasound for nodules noted on cT Family requesting oncology consult as well as palliative care consult. Prognosis is definitely guarded The impression and plan of care has been dictated by Jade Paul, Nurse Practitioner as directed. Dr. Casey MD I have performed a history and examination and MDM of this patient, discussed the same with the dictator, and agree with the dictator's assessment and plan as written ,documented as a scribe. Based on total visit time, I have performed more than 50% of the visit. Objective - Vital Signs Vital signs: Vital Signs Temp 96.9 F L 09/03/22 04:01 Pulse 98 09/03/22 04:01 Resp 24 09/03/22 04:01 BP 112/73 09/03/22 04:01 Pulse Ox 95 09/03/22 04:01 FiO2 100 09/03/22 04:01 Intake & Output 09/02/22 09/03/22 09/03/22 18:59 06:59 18:59 Intake Total 786 50 Output Total 200 Balance 586 50 Weight 48.761 kg Intake: Intake, IV Titration 550 50 Amount Sodium Chloride 0.9% 1, 500 000 ml @ 75 mls/hr IV . [id number] [facility] Rx#:[id number] cefTRIAXone 1 gm In 50 50 Sodium Chloride 0.9% 50 ml @ 100 mls/hr IVPB Q12H [facility] Rx#:[id number] Oral 236 Output: Urine 200 Other: Voiding Method Bedside Commode Bedpan # Voids 1 # Bowel Movements 0 - Labs CBC & Chem 7: 09/03/22 07:39 09/03/22 07:39 Labs: Microbiology - Last 24 Hours (Table) 08/31/22 23:10 Blood Culture - Preliminary Blood No Growth after 48 hours 08/31/22 23:00 Blood Culture - Preliminary Blood No Growth after 48 hours 09/01/22 03:52 Urine Culture - Final Urine,Voided
[2022-09-03 15:59] LABS: ABG Base Excess 0.1 mmol/L; ABG HCO3 24 mmol/L (21-25); ABG Oxygen Saturation 66.4 % (94-97); ABG PCO2 35 mmHg (35-45); ABG PH 7.45 (7.35-7.45); ABG TCO2 25 mmol/L (19-24)
[2022-09-03 16:00] LABS: ABG PO2 33 mmHg (83-108)
[2022-09-04] MEDS: TIMOLOL 0.5% OPHTH DROPS 5 ML BTL BOTH EYES SCH (08:21)
[2022-09-04] MEDS: VIT A,C & E-LUTEIN-MINERALS 1 EACH TAB PO SCH (08:21)
[2022-09-04] MEDS: ENOXAPARIN 40 MG/0.4 ML SYRINGE SQ SCH (08:21)
[2022-09-04] MEDS ORDERED: SODIUM CHLORIDE 0.9% 1,000 ML IV SCH (10:00)
--- NOTE | 2022-09-04 11:21 | P.CONS ---
History of Present Illness - Reason for Consult Consult date: 09/04/22 Pleural thickening, mediastinal adenopathy - History of Present Illness The patient is an 86-year-old white female, who was brought to the emergency room by her family, as she had been having progressive weakness. The patient has some dementia and diminished recall. Most of the history, and review of systems was obtained from her family including son and grandson were at the bedside, and the EMR. Apparently the patient had been declining over the past 3 months with decrease in appetite, early satiety and about a 30 pound weight loss. Family were concerned about dehydration due to which was brought to the ER. In the ER she was noted to be hypoxic with saturations in the 80% range. The patient does not have any known history of chronic lung disease and baseline. There is no significant history of smoking on environmental exposure, including asbestos exposure either. The patient had a CT angiogram done as her d-dimer was elevated. This showed extensive pleural nodularity on the left side, as well as soft tissue involving the mediastinum and pulmonary arteries on the left side, felt to be compatible with mediastinal adenopathy. Consult was therefore placed a further evaluation and recommendations Family denied any prior history of malignancy. The patient is however, not up-to-date with her age-appropriate malignancy screening Patient has had a barium swallow, with results pending. Echocardiogram did not show any decline in ejection fraction. Labs raised the possibility of UTI, and also showed mild elevation of troponin's. Review of Systems Constitutional: Reports fatigue, Reports weakness, Reports weight loss Eyes: denies blurred vision, denies pain Ears: deny: decreased hearing, ear discharge, earache, tinnitus Ears, nose, mouth and throat: Denies headache, Denies sore throat Cardiovascular: Reports shortness of breath (Patient herself denies any shortness of breath subjectively) Respiratory: Reports dyspnea Gastrointestinal: Reports early satiety Genitourinary: Reports urge incontinence, Reports urinary frequency Menstruation: Reports postmenopausal Musculoskeletal: Reports muscle weakness Integumentary: Denies pruritus, Denies rash Neurological: Reports memory loss, Reports weakness Psychiatric: Reports memory loss Endocrine: Reports fatigue, Reports weight change Hematologic/Lymphatic: Reports as per HPI Past Medical History Past Medical History: Hyperlipidemia, Hypertension Additional Past Medical History / Comment(s): leaky valves History of Any Multi-Drug Resistant Organisms: None Reported Past Surgical History: Tubal Ligation Additional Past Surgical History / Comment(s): burst falopian tube fixed Past Anesthesia/Blood Transfusion Reactions: No Reported Reaction Smoking Status: Never smoker - Past Family History Mother Family Medical History: Cancer Medications and Allergies Home Medications Medication Instructions Recorded Confirmed Type Alendronate Sodium [Fosamax] 70 mg PO SA 09/01/22 09/01/22 History Losartan [Cozaar] 50 mg PO DAILY 09/01/22 09/01/22 History Simvastatin [Zocor] 20 mg PO HS 09/01/22 09/01/22 History Timolol 0.5% Ophth Soln [Timoptic 1 drop BOTH EYES BID 09/01/22 09/01/22 History 0.5% Ophth Soln] Vit C/E/Zn/Coppr/Lutein/Zeaxan 1 tab PO DAILY 09/01/22 09/01/22 History [Preservision Areds 2 Chew Tab] Allergies Allergy/AdvReac Type Severity Reaction Status Date / Time No Known Allergies Allergy Verified 09/01/22 07:13 Physical Exam Vitals: Vital Signs Temp Pulse Pulse Resp BP Pulse Ox FiO2 09/04/22 08:38 100 09/04/22 08:20 97.9 F 96 24 106/69 88 L 09/04/22 04:35 97.6 F 101 H 23 121/80 96 100 09/04/22 04:16 100 09/03/22 23:33 98.1 F 94 26 H 105/67 92 L 100 09/03/22 23:11 100 09/03/22 19:53 97.7 F 104 H 23 110/73 89 L 09/03/22 19:33 89 L 100 09/03/22 16:00 110 H 99/65 77 L 09/03/22 15:23 100 09/03/22 14:00 106 H 20 09/03/22 12:15 88 L 100 09/03/22 12:00 106 H 105/68 75 L Intake and Output 09/03/22 09/04/22 09/04/22 22:59 06:59 14:59 Intake Total 50 590 Balance 50 590 Intake: Intake, IV Titration 50 50 Amount cefTRIAXone 1 gm In 50 50 Sodium Chloride 0.9% 50 ml @ 100 mls/hr IVPB Q12H [facility] Rx#:[id number] Oral 540 Other: Voiding Method Bedpan Bedpan Bedpan - Constitutional General appearance: mild distress - EENT Eyes: EOMI ENT: hearing grossly normal, normal oropharynx - Neck Neck: no lymphadenopathy Thyroid: bilateral: normal size - Respiratory Respiratory: bilateral: diminished, rhonchi - Cardiovascular Rhythm: regular Heart sounds: normal: S1, S2 - Gastrointestinal General gastrointestinal: normal bowel sounds, soft - Integumentary Integumentary: normal - Neurologic Neurologic: CNII-XII intact - Musculoskeletal Musculoskeletal: generalized weakness, strength equal bilaterally - Psychiatric Poor recall Psychiatric: A&O x's 3 Results CBC & Chem 7: 09/03/22 07:39 09/03/22 07:39 Labs: Abnormal Lab Results - Last 24 Hours (Table) 09/03/22 Range/Units 15:56 ABG pO2 33 L* (83-108) mmHg ABG Total CO2 25 H (19-24) mmol/L ABG O2 Saturation 66.4 L (94-97) % Microbiology - Last 24 Hours (Table) 08/31/22 23:00 Blood Culture - Preliminary Blood No Growth after 72 hours 08/31/22 23:10 Blood Culture - Preliminary Blood No Growth after 72 hours Comments: Echocardiogram report reviewed Chest x-ray: report reviewed CT scan - chest: report reviewed Assessment and Plan (1) Pleural nodules Narrative/Plan: The patient was found to have pleural nodularity on the left, as well as extensive soft tissue involving the mediastinum and the left pulmonary vessels, compatible with mediastinal adenopathy. There was no evidence of pleural effusion, or lung parenchymal abnormality. - The case was discussed in detail with pulmonary medicine service. Findings are suspicious for malignancy. Options for tissue diagnosis includes bron hoscopy, or thoracic surgery consult for pleural biopsy. At this time the latter is favored by the primary service, but options will be discussed further. - The above was discussed in detail with the family. It was felt that malignancy is definitely the main differential, most likely with primary site related to the thoracic cavity. Metastasis from other sites was not ruled out, but somewhat less likely based on the clinical presentation. - At this time include weight on improvement in the patient's respiratory status prior to planning any biopsies. The patient will not be a candidate for any aggressive treatment anyway, if her current status does not improve. The family expressed understanding, and were agreement with the same. Current Visit: Yes Status: Acute Code(s): R22.2 - LOCALIZED SWELLING, MASS AND LUMP, TRUNK SNOMED Code(s): 266344156 (2) Mediastinal adenopathy Narrative/Plan: As above Current Visit: Yes Status: Acute Code(s): R59.0 - LOCALIZED ENLARGED LYMPH NODES SNOMED Code(s): 66738729 Plan: Defer to the admitting service and other consultants for management of her presenting complaints and other medical issues.
[2022-09-04 12:27] VITALS: BP 104/58; PULSE 94; RESP 22; TEMP 97.4
--- NOTE | 2022-09-04 14:03 | P.PN ---
Subjective Progress Note Date: 09/04/22 Principal diagnosis: Weakness. Pulmonary consult dated 09/01/2022. 86-year-old female that sees Dr. Sheila Mckeon, and has a history of hypertension, osteoporosis, hyperlipidemia, glaucoma, and macular degeneration. The patient was seen in the emergency room, on August 31, at 8:00 PM, for weakness, as well as possible dehydration, decreased appetite, lightheadedness, and diz ziness. At some point in the emergency department, the patient apparently developed some low saturations, and she was placed on BiPAP. She denies being short of breath. Her BiPAP settings are 12/5 and 80%. She denies any cough, wheezing, or phlegm production. She denies being short of breath. A family member states that she has no history of any lung issues. She is a nonsmoker. I was consulted because the patient had low saturations. She is seen today in ER room 2. She appears not to be in any distress. Does not like wearing the BiPAP. Her CBC is normal. Sodium 140, potassium 4.6, chlorides 105, CO2 25, anion gap 8, BUN 25, and creatinine 0.67. Initial BUN/creatinine were 35 and 0.77, suggesting some prerenal azotemia. Glucose 105 troponins were elevated at 0.046 and 0.052. Urine is yellow and cloudy. Protein is 1+. Leukocyte esterase is large positive. There is greater than 182 WBCs, and rare bacteria. This could be consistent with a urinary tract infection. Screening for coronavirus was negative. Chest x-ray show some consolidation in the left lower lobe, pleural thickening, possible fluid, but no evidence of heart failure. Computed tomography scan of the chest showed extensive nodular pleural thickening on the left chest wall with extensive mediastinal adenopathy. The radiologist raises suspicion of mesothelioma. There is also evidence of abdominal ascites, and there is no evidence of pulmonary embolism. Progress note dated 09/02/2022. The patient is seen today in room 353. He was seen yesterday in the emergency department. She has a history of hypertension, hyperlipidemia, glaucoma, and macular degeneration. She came into the emergency department with weakness and dehydration. Her saturations were low, and she was placed on oxygen therapy, and also BiPAP. Today, she is on 6 L high flow O2. She's getting saline at 75 mL an hour. Her CAT scan was significant in that it showed significant irregularities and thickening of the sclera on the left side. The etiology of that is not clear. The patient will need a PFT, and an outpatient PET scan. Surprisingly, the patient denies being short of breath. Sodium 140, potassium 4, chlorides 109, CO2 25, BUN 18, with a creatinine 0.51. Pro-calcitonin level was 0.32. Troponin was 0.052. Urine was suggestive of a urinary tract infection. Progress note dated 09/03/2022. The patient is again seen in room 353. The patient is currently on BiPAP, with settings of 12/5 in 100%. No IV fluids. The patient did have a CT angiogram, that was negative for pulmonary embolism. The patient has no prior history of any lung disease. She does have a history of hypertension, hyperlipidemia, coma, and macular degeneration. She was admitted with a diagnosis of weakness and dehydration. Her CAT scan did show a thick pleural rind, which will eventually need investigation. CBC is normal. Electrolyte profile is mostly normal. Chloride is mildly elevated at 108. Pro-calcitonin level is elevated your 0.32. Urine is suspicious for a urinary tract infection. The patient is on ceftriaxone. Progress note dated 09/04/2022. The patient is again seen in room 353. Currently, patient is on 15 L high flow nasal cannula. The patient refuses to wear the BiPAP device. She's getting s ta at [facility]. She is now a DO NOT RESUSCITATE patient. The patient has no prior history of any lung disease. She does have a history of hypertension, hyperlipidemia, glaucoma, and macular degeneration. The patient was initially admitted with weakness and dehydration. The computed tomography scan showed an abnormality involving the pleura on the left. In addition, a resting room air blood gas showed found hypoxemia, and I recommended a echocardiogram with bubble study, to rule out a right to left shunt. Blood gases showed a pO2 of 33, pCO2 35, and a pH is 7.45, on room air. Objective - Vital Signs Vital signs: Vital Signs Temp 97.4 F L 09/04/22 12:00 Pulse 94 09/04/22 12:00 Resp 22 09/04/22 12:00 BP 104/58 09/04/22 12:00 Pulse Ox 91 L 09/04/22 12:00 FiO2 100 09/04/22 08:38 Intake & Output 09/03/22 09/04/22 09/04/22 18:59 06:59 18:59 Intake Total 50 590 Balance 50 590 Intake: Intake, IV Titration 50 50 Amount cefTRIAXone 1 gm In 50 50 Sodium Chloride 0.9% 50 ml @ 100 mls/hr IVPB Q12H [facility] Rx#:[id number] Oral 540 Other: Voiding Method Bedpan Bedpan Bedpan # Voids 2 0 - Exam No acute distress, oriented 3. Patient is on high flow nasal O2. HEENT examination is grossly unremarkable. Neck supple. Full range of motion. No adenopathy thyromegaly or neck vein distention. Cardiovascular examination reveals regular rhythm rate. S1-S2 normal. No S3 or S4. No discernible murmur noted. Heart sounds are distant. Heart rate 94 bpm. Lungs reveal clear bilateral breath sounds although the breath sounds in the left chest are diminished. No wheezes. No rhonchi. No crackles. Saturations are 93 %. Abdomen soft bowel sounds are heard. No masses or tenderness. Extremities are intact. No cyanosis clubbing or edema. Skin is without rash or lesion. Neurologic examination is brief but nonfocal. - Labs CBC & Chem 7: 09/03/22 07:39 09/03/22 07:39 Labs: Abnormal Lab Results - Last 24 Hours (Table) 09/03/22 Range/Units 15:56 ABG pO2 33 L* (83-108) mmHg ABG Total CO2 25 H (19-24) mmol/L ABG O2 Saturation 66.4 L (94-97) % Microbiology - Last 24 Hours (Table) 08/31/22 23:00 Blood Culture - Preliminary Blood No Growth after 72 hours 08/31/22 23:10 Blood Culture - Preliminary Blood No Growth after 72 hours Assessment and Plan Assessment: Weakness, poor oral intake, dehydration, lightheadedness, and dizziness, of unclear etiology, could relate to possible urinary tract infection. Extensive nodular pleural thickening in the left chest, with extensive mediastinal adenopathy, which could relate to mesothelioma. Profound hypoxemia on room air, rule out [id number] intracardiac shunt. Possible urinary tract infection. History of hypertension. History of hyperlipidemia. Lifelong nontobacco user. History of osteoporosis. History of glaucoma and macular degeneration. Plan: Plan dated 09/01/2022. The patient was placed on ceftriaxone, likely for urinary tract infection. The patient was also placed on BiPAP because of low saturations. The patient will need additional investigation including an outpatient PET scan. Eventually, she may need a pleural biopsy. Additional recommendations and suggestions are forthcoming. Prognosis is guarded. Family member provided most of the history. The patient absolutely denies being short of breath. Plan dated 09/02/2022. Today I spent time explaining to the patient's daughter, the findings on the CAT scan. I showed her the CAT scan myself. The patient will need an outpatient PET scan, and complete pulmonary function test. The patient's on 6 L of oxygen. She denies being short of breath. She is a lifelong nonsmoker. There is no previous history of this best this exposure. 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 Labs, x-rays, and medications are reviewed. The patient will follow-up with me in the office. Plan dated 09/03/2022. The patient will need an outpatient PET scan, and pulmonary function test. I explained this to the daughter. The patient's CT angiogram was negative for pulmonary embolism. The patient is not complaining about being short of breath which is interesting, given her high oxygen requirements. We will continue to follow make recommendations along the way. Labs, x-rays, and medications are reviewed. Prognosis is guarded. Plan dated 09/04/2022. The primary service will order a bubble study on this patient, to rule out a right to left intracardiac shunt. The patient has no prior history of any pulmonary disease, and was a lifelong nonsmoker. The patient is now a DO NOT RESUSCITATE patient. According to the nurses, the patient herself, does not want anything more done, and she may not agree to a biopsy of any type. I did speak briefly to the medical oncologist, and mentioned, the patient could have either a pleural biopsy, or an EBUS procedure, with sampling of the mediastinal nodes. We will need further clarification from the family and the patient. Prognosis is certainly guarded given her age. We will continue to follow. Time with Patient: Less than 30
--- NOTE | 2022-09-04 18:22 | P.PN ---
Subjective Progress Note Date: 09/04/22 86-year-old pleasant female came in the hospital with complaints of the generalized weakness and lightheadedness. daughter is at bedside patient's granddaughter happened to be physician believed that the patient may be dehydrated and they commented that patient go to ER for IV hydration. Patient is found to be hypoxic with the oxygen saturations going to low 80 he's patient is presently requiring BiPAP. Patient doesn't have any smoking history doesn't have any history of COPD not wheezing on exam doesn't have any CHF history. Patient denied any pleuritic chest pain patient has an elevated d- dimer because of which CT angios the chest was obtained which showed pleural thickening and some nonspecific infiltrate but no consolidation or a bronchogram patient had mild leukocytosis which resolved patient doesn't have any fever chills COVID-19 is negative influenza testing was not done. There is no pulmonary embolus, and the CT. Next Patient lives by herself with the daughter living next door. 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 Patient was given IV antibiotics in ER believing that she may have pneumonia patient doesn't have any significant cough or sputum production at this time. Patient also has mild elevation of her troponins highest one being 0.05. Patient denied any chest pain. Patient does have some arm PACs but no acute ST-T wave changes in the EKG patient does have sinus tachycardia and EKG. Clinically no evidence of CHF. Upon questioning patient is a admitted to patient's weight loss about 20 pounds in last 3 months. 09/02/2022 Patient is seen in follow-up today scheduled to undergo MBS study today as family feels she has been choking on foods and liquids for some time. Patient is currently on 6L HF with intermittent bipap use. Patient does not report feelings of shortness of breath but oxygen saturations drop significantly when off of 02. Pulmonary following and had lengthy discussion of the CT results and will need further testing outpatient including PET scan and will follow her in the office. Continue to wean as tolerated. Encouraged oral intake once study has been conduction per speech recommendations and increased activity as tolerated. Patient has been losing weight over the last few months. Afebrile and denies chest pain or palpitations. No reports of nausea or vomiting. Continued on ceftriaxone and awaiting urine cultures. 09/03/2022 Patient is seen this am and was on bipap and now 15L HF although oxygen demands are worsening and being placed back on bipap 100%. Pulmonary following and discussion was had of needing further testing with biopsy, PET scans and family is requesting an oncology as well as palliative care consult which will be placed. Patient is not reporting shortness of breath but 02 saturations have been in the 80's. Not eating very much. Needs encouragement. Continued on Ceftriaxone. Febrile. Overall prognosis is guarded. 09/04/2022 Patient is seen today with multiple family members at the bedside. Patient is on HF and needs bipap although refusing and agreeable to continuing on HF. Patient wishes to be no code and would like hospice consult. Family agreeable for informational and will decide after meeting. Patient does not want to pursue further treatments. Echo with bubble study ordered and pending. Review of systems: Constitutional: No reports of fatigue, fever, or chills Cardiovascular: No reports of chest pain or palpitations Respiratory: No reports of shortness of breath or cough GI: No reports of nausea, vomiting, or diarrhea : No reports of dysuria or retention Neurovascular: reports of generalized weakness All medications have been reviewed PHYSICAL EXAMINATION: GENERAL: The patient is alert and oriented x3, not in any acute distress. Well developed, well nourished. HEENT: Pupils are round and equally reacting to light. EOMI. No scleral icterus. No conjunctival pallor. Normocephalic, atraumatic. No pharyngeal erythema. No thyromegaly. CARDIOVASCULAR: S1 and S2 present. No murmurs, rubs, or gallops. PULMONARY: diminished breath sounds bilaterally, Chest is clear to auscultation, no wheezing or crackles. ABDOMEN: Soft, nontender, nondistended, normoactive bowel sounds. No palpable organomegaly. MUSCULOSKELETAL: No joint swelling or deformity. EXTREMITIES: No cyanosis, clubbing, or pedal edema. NEUROLOGICAL: Gross neurological examination did not reveal any focal deficits. diffuse weakness SKIN: No rashes. Assessment: -Acute hypoxic respiratory failure etiology is not clear ruled out pulmonary embolism no evidence of COPD or CHF, no evidence of pneumonia. 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 No significant EKG changes, 2d echo pending -Sinus tachycardia secondary to dehydration continue with gentle IV fluids -Hyperkalemia: Secondary to dehydration and mild acute renal failure, improved -Leukocytosis patient urine is significantly abnormal I cannot completely rule out UTI most probably secondary bacteria considering that patient has a Leukocytosis, continue the Rocephin for 2 more days -DVT prophylaxis: Low-dose Lovenox -no code Plan: Recommend to continue with current medications and management with pulmonary following Patient is refusing bipap and is only agreeable to HF NC and currently at 15. 02 saturations between 84-91%. Denies shortness of breath or discomfort. Pulmonary Dr. Gonzalez following and had a detailed conversation with family at the bedside and will need outpatient testing and PET scan and will see him outpatient on discharge. Patient does not want to further pursue any testing. Requesting hospice consult and will place for informational. Wean FI02 as tolerated, respiratory status guarded Urine culture came back negative and will discontinue rocephin Encourage oral intake. Continue with comfort per patient request Echo with bubble study ordered and patient is agreeable for now, but may refuse. Will await hospice consult and being notified today of the consult on Tuesday 09/04 Prognosis is definitely guarded The impression and plan of care has been dictated by Jade Paul, Nurse Practitioner as directed. Dr. Casey MD I have performed a history and examination and MDM of this patient, discussed the same with the dictator, and agree with the dictator's assessment and plan as written ,documented as a scribe. Based on total visit time, I have performed more than 50% of the visit. Objective - Vital Signs Vital signs: Vital Signs Temp 97.9 F 09/04/22 08:20 Pulse 96 09/04/22 08:20 Resp 24 09/04/22 08:20 BP 106/69 09/04/22 08:20 Pulse Ox 88 L 09/04/22 08:20 FiO2 100 09/04/22 08:38 Intake & Output 11/19/22 11/20/22 11/20/22 18:59 06:59 18:59 Intake Total 50 590 Balance 50 590 Intake: Intake, IV Titration 50 50 Amount cefTRIAXone 1 gm In 50 50 Sodium Chloride 0.9% 50 ml @ 100 mls/hr IVPB Q12H [facility] Rx#:[id number] Oral 540 Other: Voiding Method Bedpan Bedpan Bedpan # Voids 2 - Labs CBC & Chem 7: 09/03/22 07:39 09/03/22 07:39 Labs: Abnormal Lab Results - Last 24 Hours (Table) 09/03/22 Range/Units 15:56 ABG pO2 33 L* (83-108) mmHg ABG Total CO2 25 H (19-24) mmol/L ABG O2 Saturation 66.4 L (94-97) % Microbiology - Last 24 Hours (Table) 08/31/22 23:00 Blood Culture - Preliminary Blood No Growth after 72 hours 08/31/22 23:10 Blood Culture - Preliminary Blood No Growth after 72 hours
--- NOTE | 2022-09-05 11:13 | P.DS ---
Providers Date of admission: 08/31/22 23:46 Expected date of discharge: 09/04/22 Attending physician: Clayton Kelsey Consults: 09/01/22 10:52 Consult Physician Routine Consulting Provider: Rafael Gonzalez Consult Reason/Comments: shortness of breath Do you want consulting provider notified?: Yes 09/03/22 13:49 Consult to Palliative Care Routine Consulting Provider: Belinda Traylor Consult Reason/Comments: possible mesothelioma Do you want consulting provider notified?: Yes 09/03/22 13:54 Consult Physician Routine Consulting Provider: Jose Manuel Kang Consult Reason/Comments: possible mesothelioma, evaluation Do you want consulting provider notified?: Yes Primary care physician: Sheila Mckeon Hospital Course: Final diagnosis -Acute hypoxic respiratory failure etiology is not clear ruled out pulmonary embolism no evidence of COPD or CHF, no evidence of pneumonia. 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 No significant EKG changes, 2d echo pending -Sinus tachycardia secondary to dehydration continue with gentle IV fluids -Hyperkalemia: Secondary to dehydration and mild acute renal failure, improved -Leukocytosis patient urine is significantly abnormal I cannot completely rule out UTI most probably secondary bacteria considering that patient has a Leukocytosis, continue the Rocephin for 2 more days -DVT prophylaxis: Low-dose Lovenox -no code Discharge disposition Patient is being transferred in a stable condition with guarded prognosis to [facility] . Patient will be followed inpatient hospitalization while working on possible discharge home with hospice with [facility] services per family request. Total time taken is greater than 35 minutes. Hospital course This is a 86-year-old female who was recently admitted with severe shortness of breath requiring BiPAP with concerns for possible COPD, CHF, pneumonia although no evidence of on testing with extensive pleural thickening of the left side with concerns for possible mesothelioma pulmonary following closely. Patient's respiratory status continues to deteriorate and patient not wanting to wear BiPAP and requesting to be no code does not want intubation requesting hospice services and family agreeable. Hospice met with the family and patient at the bedside and will be signing on inpatient and working on possible discharge home with hospice services as this was the family's request. She currently 15 L high flow with 80's oxygenation. Patient does meet inpatient criteria for now. Currently no reports of chest pain, shortness of breath, or palpitations. Patient is afebrile. No reports of nausea or vomiting and patient is tolerating diet. She is not really eating very well denies any appetite. She will be monitored closely with possible discharge planning for home with hospice in the next 24-48 hours. Prognosis is extremely poor and guarded at this time. Physical exam: Gen: This is a 86-year-old female awake, alert and oriented 3, lethargic but easily arousable. Thin built, elderly appearing female HEENT: Head is atraumatic, normocephalic. Pupils equal, round. Sclerae is anicteric. NECK: Supple. No JVD. No lymphadenopathy. No thyromegaly. LUNGS: Severely diminished breath sounds with no wheezes or rhonchi. No intercostal retractions. HEART: Regular rate and rhythm. No murmur. ABDOMEN: Soft. Bowel sounds are present. No masses. No tenderness. EXTREMITIES: No pedal edema. No calf tenderness. NEUROLOGICAL: Patient is awake, alert and oriented x3. Cranial nerves 2 through 12 are grossly intact. Diffusely weak Please refer to medication reconciliation sheet for a list of medications. The impression and plan of care has been dictated by Jade Paul, Nurse Practitioner as directed. Dr. Casey MD I have performed a history and examination and MDM of this patient, discussed the same with the dictator, and agree with the dictator's assessment and plan as written ,documented as a scribe. Based on total visit time, I have performed more than 50% of the visit. Patient Condition at Discharge: Poor Plan - Discharge Summary Discharge Rx Participant: No New Discharge Prescriptions: No Action Simvastatin [Zocor] 20 mg PO HS Losartan [Cozaar] 50 mg PO DAILY Atropine Ophth Soln 1% 5Ml [Isopto Atropine 1% 5Ml] 2 drops SUBLINGUAL Q4HR PRN ml PRN Reason: Excess Secretions Scopolamine 1 mg/72 Hr Patch [TransDerm Scop] 1 patch TRANSDERM Q72H patch Acetaminophen Suppository [Tylenol Suppository] 650 mg RECTAL Q4HR PRN suppositor PRN Reason: Fever And/Or Mild Pain Timolol 0.5% Ophth Soln [Timoptic 0.5% Ophth Soln] 1 drop BOTH EYES BID Discharge Medication List Losartan [Cozaar] 50 mg PO DAILY 09/01/22 [History] Simvastatin [Zocor] 20 mg PO HS 09/01/22 [History] Timolol 0.5% Ophth Soln [Timoptic 0.5% Ophth Soln] 1 drop BOTH EYES BID 09/01/22 [History] Acetaminophen Suppository [Tylenol Suppository] 650 mg RECTAL Q4HR PRN suppositor 09/05/22 [Rx] Atropine Ophth Soln 1% 5Ml [Isopto Atropine 1% 5Ml] 2 drops SUBLINGUAL Q4HR PRN ml 09/05/22 [Rx] Scopolamine 1 mg/72 Hr Patch [TransDerm Scop] 1 patch TRANSDERM Q72H patch 09/05/22 [Rx] Follow up Appointment(s)/Referral(s): Sheila Mckeon MD [Primary Care Provider] - 1-2 days Rafael Gonzalez DO [Doctor of Osteopathic Medicine] - 1 Week [facility] Visiting Nurse, [NON-STAFF] - Discharge Disposition: DISCH TO [facility]
== END 2022-09-04 16:22 | disposition hospice, inpatient (51) | DRG 189 ==
LOC: EC 20:02 → 3SCARD 23:46
PROVIDERS: ADMIT Hospitalist; ATTEND Hospitalist
PROC: 5A09457 Assistance with Respiratory Ventilation, 24-96 Consecutive Hours, Continuous Positive Airway Pressure (ICD-10-PCS; principal; 2022-09-01)
DX: J96.01 Acute respiratory failure with hypoxia (principal); N39.0 Urinary tract infection, site not specified; R18.8 Other ascites; C45.9 Mesothelioma, unspecified; E86.0 Dehydration; F01.A0 Vascular dementia, mild, without behavioral disturbance, psychotic disturbance, mood disturbance, and anxiety; E04.1 Nontoxic single thyroid nodule; Z66 Do not resuscitate; Z51.5 Encounter for palliative care; Z20.822 Contact with and (suspected) exposure to COVID-19; F03.A0 Unspecified dementia, mild, without behavioral disturbance, psychotic disturbance, mood disturbance, and anxiety; E78.5 Hyperlipidemia, unspecified; I10 Essential (primary) hypertension; E87.5 Hyperkalemia; R59.0 Localized enlarged lymph nodes; R13.10 Dysphagia, unspecified; R77.8 Other specified abnormalities of plasma proteins; R39.2 Extrarenal uremia; M81.0 Age-related osteoporosis without current pathological fracture; H35.30 Unspecified macular degeneration; H40.9 Unspecified glaucoma; Z79.83 Long term (current) use of bisphosphonates; Z79.899 Other long term (current) drug therapy; Z86.15 Personal history of latent tuberculosis infection; Z71.3 Dietary counseling and surveillance
CPT/HCPCS: 36415; 36600; 71045; 71275; 74230; 80048; 80053; 81001; 82805; 83735; 84100; 84145; 84443; 84484; 85025; 85379; 87040; 87086; 87635; 93005; 93306; 94660; 96361; 96365; 96366; 96375; 96376; 99285

== ENCOUNTER 2022-09-04 16:04 | Inpatient (IN) | payer MEDICAID ==
[2022-09-04] MEDS ORDERED: ACETAMINOPHEN SUPPOSITORY 650 MG SUPP RECTAL PRN (16:12)
[2022-09-04] MEDS ORDERED: LORazepam 2 MG/ML INJ IV PRN (16:12)
[2022-09-04] MEDS ORDERED: ATROPINE OPHTH SOLN 1% 5ML BTL SUBLINGUAL PRN (16:12)
[2022-09-04] MEDS ORDERED: ONDANSETRON 4 MG/2 ML VIAL IVP PRN (16:12)
[2022-09-04] MEDS ORDERED: MORPHINE SULFATE (100 MG/2 ML) 100 MG in SODIUM CHLORIDE 0.9% 100 ML IV SCH (16:15)
[2022-09-04] MEDS ORDERED: SCOPOLAMINE 1 MG/72 HR PATCH TRANSDERM SCH (16:15)
[2022-09-04] MEDS ORDERED: LORazepam 1 MG TAB PO PRN (16:17)
[2022-09-04] MEDS: MORPHINE CONC SOLN 10mg/0.5mL ORAL SYRG PO PRN ×2 (16:56→21:06)
[2022-09-04 20:18] VITALS: TEMP 98.1
[2022-09-05] MEDS: MORPHINE CONC SOLN 10mg/0.5mL ORAL SYRG PO PRN ×2 (01:01→05:33)
[2022-09-05 02:53] VITALS: PULSE 101
[2022-09-05] MEDS: MORPHINE SULFATE 4 MG/ML SYRINGE IV PRN ×3 (04:21→13:30)
[2022-09-05 13:54] VITALS: RESP 16
--- NOTE | 2022-09-05 13:57 | P.HPIM ---
History of Present Illness H&P Date: 09/05/22 86-year-old pleasant female came in the hospital with complaints of the generalized weakness and lightheadedness. daughter is at bedside patient's granddaughter happened to be physician believed that the patient may be dehydrated and they commented that patient go to ER for IV hydration. P atient is found to be hypoxic with the oxygen saturations going to low 80 he's patient is presently requiring BiPAP. Patient doesn't have any smoking history doesn't have any history of COPD not wheezing on exam doesn't have any CHF history. Patient denied any pleuritic chest pain patient has an elevated d- dimer because of which CT angios the chest was obtained which showed pleural thickening and some nonspecific infiltrate but no consolidation or a bronchogram patient had mild leukocytosis which resolved patient doesn't have any fever chills COVID-19 is negative influenza testing was not done. There is no pulmonary embolus, and the CT. Next Patient lives by herself with the daughter living next door. 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 Patient was given IV antibiotics in ER believing that she may have pneumonia patient doesn't have any significant cough or sputum production at this time. Patient also has mild elevation of her troponins highest one being 0.05. Patient denied any chest pain. Patient does have some arm PACs but no acute ST-T wave changes in the EKG patient does have sinus tachycardia and EKG. Clinically no evidence of CHF. Upon questioning patient is a admitted to patient's weight loss about 20 pounds in last 3 months. 09/05/2022 Patient has been hospitalized for a few days now and clinically deteriorating requiring more oxygen and has been refusing to wear BiPAP and does not want to be intubated. Patient and family requested hospice consult and being transition to inpatient hospice for now with [facility] services and working on discharge planning as patient and family want to take her home with hospice comfort only. Arrangements are being made and patient will likely be discharged today. Patient is continued on 10 L high flow which can be accommodated per hospice. REVIEW OF SYSTEMS: Unable to completely assess as patient is lethargic and sedated The rest of the 14-point review of systems is negative. PHYSICAL EXAMINATION: GENERAL: The patient is alert and oriented x3, extremely lethargic although arousable and agitated. Well developed, well nourished. HEENT: Pupils are round and equally reacting to light. EOMI. No scleral icterus. No conjunctival pallor. Normocephalic, atraumatic. No pharyngeal erythema. No thyromegaly. CARDIOVASCULAR: S1 and S2 present. No murmurs, rubs, or gallops. PULMONARY: Severely diminished breath sounds bilaterally with no wheezing or rhonchi noted. ABDOMEN: Soft, nontender, nondistended, normoactive bowel sounds. No palpable organomegaly. MUSCULOSKELETAL: No joint swelling or deformity. EXTREMITIES: No cyanosis, clubbing, or pedal edema. NEUROLOGICAL: Gross neurological examination did not reveal any focal deficits. Diffusely weak SKIN: No rashes. Assessment: -Acute hypoxic respiratory failure etiology is not clear ruled out pulmonary embolism no evidence of COPD or CHF. Patient does have significant pleural thickening on the left side with concerns of mesothelioma, patient requesting no further treatment -Thyroid nodule would need outpatient thyroid testing and further testing although patient refusing -Weight loss can be related to undiagnosed malignancy or HR secondary to dementia -Possible mild to moderate dementia vascular or senile -Mild troponin elevation no evidence of acute myocardial infarction clinically. No significant EKG changes -Sinus tachycardia secondary to dehydration -Hyperkalemia: Secondary to dehydration and mild acute renal failure, improved -Leukocytosis patient urine is significantly abnormal I cannot completely rule out UTI, urine cultures were negative, most probably secondary bacteria -DVT prophylaxis -No code Plan: Patient and family have met with [facility] at bedside and have signed on and beating GIP status although would like to go home with hospice if possible and working on oxygen requirements. Currently down to 10 L high flow which can be accommodated. Patient along with family and toxicology supervisor working on discharge home with hospice today. We will continue to follow and continue with comfort measures only per family and patient request. Overall prognosis is extremely poor and guarded at this time. The impression and plan of care has been dictated by Jade Paul, Nurse Practitioner as directed. Dr. Low MD I have performed a history and examination and MDM of this patient, discussed the same with the dictator, and agree with the dictator's assessment and plan as written ,documented as a scribe. Based on total visit time, I have performed more than 50% of the visit. Past Medical History Past Medical History: Hyperlipidemia, Hypertension Additional Past Medical History / Comment(s): leaky valves History of Any Multi-Drug Resistant Organisms: None Reported Past Surgical History: Tubal Ligation Additional Past Surgical History / Comment(s): burst falopian tube fixed Past Anesthesia/Blood Transfusion Reactions: No Reported Reaction Smoking Status: Never smoker - Past Family History Mother Family Medical History: Cancer Medications and Allergies Home Medications Medication Instructions Recorded Confirmed Type Losartan [Cozaar] 50 mg PO DAILY 09/01/22 09/04/22 History Simvastatin [Zocor] 20 mg PO HS 09/01/22 09/04/22 History Timolol 0.5% Ophth Soln [Timoptic 1 drop BOTH EYES BID 09/01/22 09/04/22 History 0.5% Ophth Soln] Acetaminophen Suppository [Tylenol 650 mg RECTAL Q4HR PRN suppositor 09/05/22 Rx Suppository] Atropine Ophth Soln 1% 5Ml [Isopto 2 drops SUBLINGUAL Q4HR PRN ml 09/05/22 Rx Atropine 1% 5Ml] Scopolamine 1 mg/72 Hr Patch 1 patch TRANSDERM Q72H patch 09/05/22 Rx [TransDerm Scop] Allergies Allergy/AdvReac Type Severity Reaction Status Date / Time No Known Allergies Allergy Verified 09/04/22 20:09 Physical Exam Vitals: Vital Signs Temp Pulse Resp 09/05/22 08:00 18 09/05/22 06:25 16 09/05/22 04:37 24 09/05/22 02:52 101 H 18 09/05/22 01:08 20 09/05/22 00:00 20 09/04/22 22:41 18 09/04/22 21:46 20 09/04/22 20:18 98.1 F 24 09/04/22 17:08 22 Intake and Output 09/04/22 09/05/22 09/05/22 22:59 06:59 14:59 Output Total 0 Balance 0 Output: Urine 0 Other: Voiding Method Indwelling Catheter Weight 48.7 kg
--- NOTE | 2022-09-05 14:03 | P.DS ---
Providers Date of admission: 09/04/22 16:34 Expected date of discharge: 09/05/22 Attending physician: Janice Peña Primary care physician: Sheila Mckeon Hospital Course: Final diagnosis -Acute hypoxic respiratory failure etiology is not clear ruled out pulmonary embolism no evidence of COPD or CHF, no evidence of pneumonia. Patient does have significant pleural thickening on the left side may need pleural biopsy with concerns of mesothelioma, recommending outpatient PET scans and further testing although patient now refusing -dysphagia, most likely chronic -Thyroid nodule, TSH normal, will need outpatient thyroid ultrasound although patient is refusing any further testing -Weight loss can be related to undiagnosed malignancy or possibly secondary to dementia -Possible mild dementia vascular or senile -Mild troponin elevation no evidence of acute myocardial infarction clinically. No significant EKG changes -Sinus tachycardia secondary to dehydration, improved -Hyperkalemia: Secondary to dehydration and mild acute renal failure, improved -Leukocytosis patient urine is significantly ab: Low-dose Lovenox -no code Discharge disposition Patient is being discharged in a stable condition with guarded prognosis to home with [facility] and comfort measures only. Patient will follow-up with Dr. Mckeon in the outpatient setting upon discharge. Patient is to continue with [facility] comfort measures only. Total time taken is greater than 35 minutes. Hospital course This is a 86-year-old female who was recently admitted with progressive shortness of breath that has been worsening and also noticing a weight loss over the last few months and difficulty with eating and not eating well being closely monitored. No signs of COPD, CHF or pneumonia with possible UTI that was present on admission, urine cultures were negative. Patient was treated with 3- 4 days of IV antibiotics and have been discontinued. Concern was for possible malignancy of the lungs possible mesothelioma and would be requiring further testing with PET scan and biopsy outpatient. Patient continued to progressively become more worse requiring increased oxygen demands although refusing BiPAP. Patient was to have an echo with bubble study although patient refusing and does not want any further treatment. Patient had requested hospice consult and agreeable to sign on with [facility]. Family and patient met with hospice at bedside and working on discharge planning. Family would like to take the patient home with hospice comfort measures only. Arrangements are being made and patient will be discharged today. Overall prognosis is extremely poor and guarded at this time. Currently no reports of chest pain, shortness of breath, or palpitations. Patient is afebrile. No reports of nausea or vomiting and patient is not eating or drinking. Patient will be discharged home on hospice today. Physical exam: Gen: This is a 86-year-old female lethargic although arousable, restless, anxious, elderly ill-appearing female HEENT: Head is atraumatic, normocephalic. Pupils equal, round. Sclerae is anicteric. NECK: Supple. No JVD. No lymphadenopathy. No thyromegaly. LUNGS: Diminished breath sounds bilaterally with some scattered rhonchi noted. No intercostal retractions. HEART: S1, S2 are muffled ABDOMEN: Soft. Bowel sounds are present. No masses. No tenderness. EXTREMITIES: No pedal edema. No calf tenderness. NEUROLOGICAL: Patient is extremely lethargic although arousable , alert and oriented x2. Diffusely weak Please refer to medication reconciliation sheet for a list of medications. The impression and plan of care has been dictated by Jade Paul, Nurse Practitioner as directed. Dr. Low MD I have performed a history and examination and MDM of this patient, discussed t he same with the dictator, and agree with the dictator's assessment and plan as written ,documented as a scribe. Based on total visit time, I have performed more than 50% of the visit. Patient Condition at Discharge: Poor Plan - Discharge Summary New Discharge Prescriptions: New Atropine Ophth Soln 1% 5Ml [Isopto Atropine 1% 5Ml] 2 drops SUBLINGUAL Q4HR PRN ml PRN Reason: Excess Secretions Scopolamine 1 mg/72 Hr Patch [TransDerm Scop] 1 patch TRANSDERM Q72H patch Acetaminophen Suppository [Tylenol Suppository] 650 mg RECTAL Q4HR PRN suppositor PRN Reason: Fever And/Or Mild Pain Continue Simvastatin [Zocor] 20 mg PO HS Losartan [Cozaar] 50 mg PO DAILY Timolol 0.5% Ophth Soln [Timoptic 0.5% Ophth Soln] 1 drop BOTH EYES BID Discontinued Alendronate Sodium [Fosamax] 70 mg PO SA Vit C/E/Zn/Coppr/Lutein/Zeaxan [Preservision Areds 2 Chew Tab] 1 tab PO DAILY Discharge Medication List Losartan [Cozaar] 50 mg PO DAILY 09/01/22 [History] Simvastatin [Zocor] 20 mg PO HS 09/01/22 [History] Timolol 0.5% Ophth Soln [Timoptic 0.5% Ophth Soln] 1 drop BOTH EYES BID 09/01/22 [History] Acetaminophen Suppository [Tylenol Suppository] 650 mg RECTAL Q4HR PRN suppositor 09/05/22 [Rx] Atropine Ophth Soln 1% 5Ml [Isopto Atropine 1% 5Ml] 2 drops SUBLINGUAL Q4HR PRN ml 09/05/22 [Rx] Scopolamine 1 mg/72 Hr Patch [TransDerm Scop] 1 patch TRANSDERM Q72H patch 09/05/22 [Rx] Activity/Diet/Wound Care/Special Instructions: Patient is going home with hospice [facility] following Discharge Disposition: HOME WITH HOSPICE
== END 2022-09-05 13:46 | disposition hospice, home (50) | DRG 951 ==
LOC: 3SCARD 16:34
PROVIDERS: ADMIT Internal Medicine; ATTEND Internal Medicine
DX: Z51.5 Encounter for palliative care (principal); J96.01 Acute respiratory failure with hypoxia; N17.9 Acute kidney failure, unspecified; E87.6 Hypokalemia; R09.02 Hypoxemia; E86.0 Dehydration; D72.829 Elevated white blood cell count, unspecified; E04.1 Nontoxic single thyroid nodule; E78.5 Hyperlipidemia, unspecified; E87.5 Hyperkalemia; F03.B0 Unspecified dementia, moderate, without behavioral disturbance, psychotic disturbance, mood disturbance, and anxiety; I10 Essential (primary) hypertension; R13.10 Dysphagia, unspecified; Z79.899 Other long term (current) drug therapy; Z66 Do not resuscitate